=== PATIENT | male | born 1960 | race Caucasian/White ===

== ENCOUNTER 2019-02-10 13:14 | Emergency (ER) | payer OTHER, SELFPAY ==
[2019-02-10 13:15] VITALS: BP 120/68; PULSE 76; RESP 16; TEMP 36.4; O2SAT 96; BMI 24.7
--- NOTE | 2019-02-10 13:27 | CT_ITS ---
STUDY: CT ABDOMEN AND PELVIS WITH CONTRAST REASON FOR EXAM: Male, 58 years old. One-week history of right lower abdominal pain. Elevated white cell count and nausea. RADIATION DOSAGE (If Supplied By Facility): CTDIvol = ( 14.95 ) mGy, DLP = ( 494.00 ) mGycm TECHNIQUE: Transaxial images were obtained from the dome of the diaphragm to the symphysis pubis with oral contrast. 100mL IV/Oral Isovue 300 was administered. Sagittal and coronal images were reconstructed. Individualized dose optimization techniques were used for this CT. COMPARISON: None. FINDINGS: Minimal degree of increased markings at the lung bases suggestive of bibasilar atelectasis. The visualized portions of the heart are within normal limits. Normal liver. There are surgical clips in the gallbladder fossa consistent with a prior cholecystectomy. Normal spleen. Normal pancreas. Normal bilateral adrenal glands. Normal right kidney. Normal left kidney. Normal visualized stomach. I suspect a diverticulum of the second portion of the duodenum. There are multiple colonic diverticula consistent with diverticulosis. The appendix is visualized and appears normal. There is scattered atherosclerotic calcification of the abdominal aorta, without a demonstrated aneurysm. Normal inferior vena cava. Normal retroperitoneum. Normal urinary bladder. There are prostatic calcifications. The prostate measures 3.3 cm x 4.1 cm. This causes indentation at the bladder base. Small bilateral inguinal hernias containing fat. There are mild degenerative changes of the visualized lumbar spine. CT/Abdomen/Pelvis WITH Contrast IMPRESSION: Scattered sigmoid diverticula. The patient is status post cholecystectomy. Electronically Signed: Arnaud Geiger, at 15:57 EDT , Service support ,
[2019-02-10 14:42] VITALS: BP 138/93; PULSE 67; RESP 15; O2SAT 100
[2019-02-10 14:53] LABS: Absolute Lymphocyte Count 3.35 X10^3/uL (0.83-4.51); Absolute Neutrophil Count 10.5 X10^3/uL (2.0-7.7); Basophil% 0.6 % (0-1); Eosinophils% 1.3 % (0-5); Hematocrit 48.8 % (40-54); Hemoglobin 16.5 g/dL (13.0-16.5); Lymphocyte # 3.35 X10^3/ul (4.0); Lymphocyte % 21.7 % (19-41); Mean Corp Hgb Conc 33.8 g/dL (32-36); Mean Corpuscular Hgb 30.5 pg (27.0-32.0); Mean Corpuscular Volume 90.2 fL (80-94); Mean Platelet Vol. 11.4 fl (6.2-12.0); Monocyte% 7.8 % (0-10); NRBC Flagged by Analyzer 0 % (0-5); Neutrophil # 10.54 X10^3/uL (2.7-7.7); Neutrophil % 68.2 % (47-70); Platelet Count 260 K/mm3 (150-450); RBC Distribution Width CV 14.8 % (11.6-14.6); RBC Distribution Width SD 48.6 fl (35.1-43.9); Red Blood Count 5.41 M/mm3 (4.6-6.2); White Blood Count 15.5 K/mm3 (4.4-11.0)
--- NOTE | 2019-02-10 15:31 | ED.VIS.GEN ---
History of Present Illness Chief Complaint: Abd Pain Narrative: 58-year-old male presents with right lower quadrant abdominal pain for the past week. It started gradually and began to improve but has now returned to the he describes it as an intermittent sharp pain, only in the right lower quadrant. His bowel movements have been normal and he has had a normal appetite. No vomiting or fever. No back pain. He initially thought it was a pulled muscle but when it did not go away he went to see his primary care physician yesterday. He had outpatient laboratory studies that revealed a white blood cell count of 20,000 so he was sent to the emergency department for a CT scan to rule out acute appendicitis. Past Medical History - Allergies and Home Meds Allergies/Adverse Reactions: Allergies No Known Allergies Allergy (Verified 02/10/19 13:15) Primary Care Physician: Santiago Husain NP-C [Primary Care Provider] - Prior records reviewed: Yes Surgical History: noncontributory Smoking Status: Current every day smoker Review of Systems General: Denies: Chills, Fever, Sweats Eyes: Denies: Visual changes - bilaterally, Diplopia ENT: Denies: Rhinorrhea, Sore throat Cardiovascular: Denies: Chest pain, Palpitations Respiratory: Denies: Dyspnea, Cough, Dyspnea on exertion Gastrointestinal: Reports: Abdominal pain. Denies: Nausea, Vomiting, Diarrhea, Melena, Hematochezia Genitourinary: Denies: Dysuria, Hematuria, Frequency Musculoskeletal: Denies: Back pain, Extremity Pain Skin: Denies: Rash, Wounds Neurological: Denies: Headache, Weakness, Numbness Physical Exam Vital Signs/Narrative: Vital Signs Temp Pulse Resp BP Pulse Ox 02/10/19 14:42 67 15 138/93 H 100 02/10/19 13:15 97.5 F L 76 16 120/68 96 General: Well nourished, Well developed, No Acute Distress Head: Normocephalic, Atraumatic Eyes: Perrl, EOMI ENT: Moist mucous membranes, No rhinorrhea Neck: Supple, Nontender Cardiovascular: Regular rate, Regular rhythm, No murmurs Respiratory: No distress, CTA bilaterally, Chest nontender Abdomen: Soft, Nondistended, Normal bowel sounds, Tender - RLQ Back: Nontender, Normal Inspection Extremities: Nontender, No edema Skin: Normal color, No rash Neurological: Alert, Oriented x3, Cranial nerves II-XII grossly intact, Normal Strength, Normal Sensation Psychological: Normal affect, Normal Mood Diagnostic/Tx/Re-eval - Medical Decision Making He does still have a leukocytosis of 15,500. It was 20,000 yesterday. His urine does not look infected. I sent it for culture. His CT abdomen/pelvis is negative for acute process. The appendix is visualized and appears normal. On reexamination, his abdomen is soft and nontender. His pain is extremely minimal. He has no testicular pain or rash. No urinary symptoms. No skin wounds. I talked at length with him. The exact cause of his abdominal pain is not clear but it certainly could be musculoskeletal as he suspects. He will follow-up closely with his doctor to have his leukocytosis rechecked to make sure that is normalizing. I asked him to have this done in the next 2 days. He will return to the emergency department if worse. ED Disposition - Plan for ED Patient: Disposition: Home or Assisted Living Diagnosis: Right lower quadrant abdominal pain, Leukocytosis Instructions: ABDOMINAL PAIN, Unkown Cause, (Male) Referrals: Santiago Husain NP-C [Primary Care Provider] - 1 Day for another exam Additional Instructions: Make sure you get your blood work repeated within 48 hours
[2019-02-10 15:33] LABS: Anion Gap 6 (5-15); BUN 16 mg/dL (7-18); BUN/Creat Ratio 14.5 RATIO (10-20); Calcium,Total 8.5 mg/dL (8.5-10.1); Chloride 108 mmol/L (98-107); EST Glomerular Filtration Rate 73 mL/min (>60); Est Glom Filt Rate - Afr Amer 89 mL/min (>60); Estimated Creatinine Clearance 74.09 ml/min; Glucose 82 mg/dL (74-106); Potassium 4.8 mmol/L (3.5-5.1); Sodium Level 140 mmol/L (136-145)
[2019-02-10 15:48] LABS: Bacteria 0 SEEN /hpf (None Seen); Mucous, Urine 0 SEEN /hpf (<or=2+); Red Blood Cells-Urine 0 SEEN /hpf (0-5); White Blood Cells 0 SEEN /hpf (0-5)
[2019-02-10 15:55] LABS: Color, Urine Yellow (Yellow); Glucose, Dipstick Normal (Normal); Ketone-Dipstick Negative (Negative); Leukocyte Esterase-Dipstick Negative /ul (Negative); Nitrite-Dipstick Negative (Negative); Occult Blood-Urine Negative /ul (Negative); Protein-Dipstick Negative (Negative); Urine Bilirubin Dipstick Negative (Negative); Urine Clarity Clear (Clear); Urine Urobilinogen Normal (Normal); Urine pH 6.5 (5.0 - 8.0)
[2019-02-10 16:26] LABS: Squamous Epithelial Cells - UA 0-5 SEEN /hpf (0-5)
[2019-02-10 16:35] VITALS: BP 131/64; PULSE 78; RESP 16; TEMP 36.6; O2SAT 99
== END 2019-02-10 16:37 | disposition home or self-care (01) ==
PROVIDERS: Emergency Provider Emergency Medicine; Family Provider Nurse Practitioner Family; PCP Nurse Practitioner Family
DX: R10.31 Right lower quadrant pain (principal); D72.829 Elevated white blood cell count, unspecified; K57.30 Diverticulosis of large intestine without perforation or abscess without bleeding; F17.200 Nicotine dependence, unspecified, uncomplicated; Z90.49 Acquired absence of other specified parts of digestive tract
CPT/HCPCS: 74177; 80048; 81001; 85025; 99283; Q9967; A4216

== ENCOUNTER 2020-02-05 19:54 | Emergency (ER) | payer OTHER, SELFPAY ==
[2020-02-05 19:56] VITALS: BP 145/95; PULSE 81; RESP 16; TEMP 37.1; O2SAT 96; BMI 25.8
--- NOTE | 2020-02-05 21:45 | RAD_ITS ---
STUDY: X-RAY CHEST REASON FOR EXAM: Male, 59 years old. LEFT SIDED CHEST/ RIB PAIN -- HX OF RIB FXS 3 YRS AGO, SAME AREA -- NO RECENT INJURY TECHNIQUE: Frontal view COMPARISON: None. FINDINGS: The lungs are expanded. Mild left basilar atelectasis. Normal size heart. Normal mediastinum and tres. Normal visualized pulmonary arteries. Normal visualized aortic arch and descending thoracic aorta. Normal visualized thoracic spine. Normal visualized ribs, clavicles, and shoulders. There is no demonstrated abnormality of the visualized soft tissue structures of the upper abdomen. RAD/Chest 1 View (Portable) IMPRESSION: Mild left basilar atelectasis. Electronically Signed: Yfn Ortega DO at 22:18 EDT Tel [phone], Service support ,
[2020-02-05 21:56] LABS: Absolute Neutrophil Count 10.4 X10^3/uL (2.0-7.7); Basophil% 0.6 % (0-1); Eosinophil# 0.19 X10^3/uL; Eosinophils% 1.2 % (0-5); Hematocrit 42.8 % (40-54); Hemoglobin 14.2 g/dL (13.0-16.5); Lymphocyte % 21.4 % (19-41); Mean Corp Hgb Conc 33.2 g/dL (32-36); Mean Corpuscular Hgb 29.4 pg (27.0-32.0); Mean Corpuscular Volume 88.6 fL (80-94); Mean Platelet Vol. 10.6 fl (6.2-12.0); Monocyte# 1.75 X10^3/uL; NRBC Flagged by Analyzer 0 % (0-5); Neutrophil # 10.36 X10^3/uL (2.7-7.7); Neutrophil % 65.4 % (47-70); POSITIVE DIFFERENTIAL YES; Platelet Count 302 K/mm3 (150-450); RBC Distribution Width CV 13.7 % (11.6-14.6); RBC Distribution Width SD 44.6 fl (35.1-43.9); Red Blood Count 4.83 M/mm3 (4.6-6.2); White Blood Count 15.9 K/mm3 (4.4-11.0)
[2020-02-05 21:59] LABS: Differential Indicated SCAN CRITERIA MET
[2020-02-05 22:06] LABS: Anion Gap 6 (5-15); BUN 16 mg/dL (7-18); BUN/Creat Ratio 14.4 RATIO (10-20); Calcium,Total 8.6 mg/dL (8.5-10.1); Chloride 107 mmol/L (98-107); Creatinine, Serum 1.11 mg/dL (0.70-1.30); EST Glomerular Filtration Rate 72 mL/min (>60); Est Glom Filt Rate - Afr Amer 87 mL/min (>60); Estimated Creatinine Clearance 72.54 ml/min; Glucose 90 mg/dL (74-106); Potassium 4.1 mmol/L (3.5-5.1); Sodium Level 139 mmol/L (136-145)
[2020-02-05 22:10] LABS: D-Dimer Quantitative (DVT/PE) 0.42 FEU/ug/m (0.27-0.49)
[2020-02-05 22:11] VITALS: BP 123/88; PULSE 72; RESP 16; O2SAT 98
[2020-02-05] MEDS: 0.9% Normal Saline 1,000 ML 1000 ML IV (22:13)
--- NOTE | 2020-02-05 22:37 | ED.DCSUM_ITS ---
- ER Visit Summary Date of Service: 02/05/20 Chief Complaint: Left chest pain History of Present Illness: The patient is a 59 M who presents with left-sided chest pain that is been getting worse over the past 2 to 3 days. Patient describes the pain as sharp and stabbing. Patient states the pain is over the left lower chest. Patient states it is worse with exertion and deep breathing. Patient denies any cough. Patient states he has trouble taking a deep breath due to the pain. Patient denies any cough or fever. Patient denies any nausea or vomiting. Patient denies any diaphoresis. Patient denies any recent travel or recent surgery. Patient denies any history of blood clots or cancer. Lida gupta is a smoker. Patient denies any other cardiac or PE risk factors. Physical Examination: Vital signs are stable. Patient is afebrile. Patient is in no acute distress. Oral mucosa is pink and moist. Neck is supple. Trachea is midline. There is no JVD. Heart was regular rate and rhythm. Lungs are diminished in the left base. There is adequate respiratory effort. It was limited secondary to pain. There is tenderness over the left lower ribs. There is no bony crepitance or step-off. There is no edema or ecchymosis. Abdomen is soft. Bowel sounds are normal. There is no tenderness. Cranial nerves II through XII are intact. There are no focal motor or sensory deficits. Test Results: Portable chest x-ray was obtained. There is left basilar atelectasis. This was interpreted by the radiologist and reviewed by myself. CBC showed a leukocytosis of 15.9. Basic metabolic profile was within normal limits. D-dimer was normal. Emergency Department Course and Treatment: Patient was given IV fluids. Patient was given a dose of Toradol here. Patient was instructed to follow-up with his primary care physician in 5 to 7 days. Patient was instructed to take 10-15 deep breaths every hour while awake to prevent atelectasis and pneumonia. Patient was instructed to return if worse in any way. Patient understood and was agreeable with the plan. All questions were answered. Disposition: Discharge home Impression: Chest pain This note was generated with [employer] dictation software. It may contain incorrect words, spelling, and punctuation that were not noted in review of the chart prior to signing ED Disposition - Plan for ED Patient: Disposition: Home or Assisted Living Diagnosis: Left-sided chest pain Instructions: ED Chest Pain NonCardiac Referrals: West Bae MD [Primary Care Provider] - 5-7 Days
[2020-02-05] MEDS: Ketorolac 30 MG/ML Syringe IV (22:51)
[2020-02-05 22:52] VITALS: BP 136/97; PULSE 72; RESP 15; O2SAT 95
[2020-02-05 23:22] LABS: Differential Comment SCANNED
[2020-02-05 23:23] LABS: Platelet Estimate ADEQUATE (ADEQ); Red Cell Morphology NORM C+C NORMAL (NORM C&C)
[2020-02-07 12:56] LABS: Pathologist Review Reviewed
== END 2020-02-05 23:00 | disposition home or self-care (01) ==
PROVIDERS: Emergency Provider Emergency Medicine; PCP Family Medicine
DX: R07.9 Chest pain, unspecified (principal); F17.200 Nicotine dependence, unspecified, uncomplicated; E05.90 Thyrotoxicosis, unspecified without thyrotoxic crisis or storm
CPT/HCPCS: 71045; 80048; 85025; 85379; 96361; 96374; 99283; J7030; A4216

== ENCOUNTER 2020-04-23 14:20 | Emergency (ER) | payer OTHER, SELFPAY ==
[2020-04-23 14:22] VITALS: BP 132/77; PULSE 78; RESP 16; TEMP 36.3; O2SAT 97; BMI 24.3
--- NOTE | 2020-04-23 14:46 | EKG12_ITS ---
Test Reason : CP Blood Pressure : / mmHG Vent. Rate : 082 BPM Atrial Rate : 082 BPM P-R Int : 142 ms QRS Dur : 098 ms QT Int : 366 ms P-R-T Axes : 083 079 071 degrees QTc Int : 427 ms Normal sinus rhythm with sinus arrhythmia Incomplete right bundle branch block Borderline ECG Confirmed by SAMMY DOMÍNGUEZ, CHILO ([id number]), newspaper photo editor RELL GARCIA ([id number]) on 04/25/2020 12:51:53 PM Referred By: Confirmed By:CHILO CHRISTIANSON MD
--- NOTE | 2020-04-23 14:47 | ED.VIS.GEN ---
History of Present Illness Chief Complaint: Chest Pain Informant: Patient Onset: Weeks - 1 week Context: Gradual Onset Timing: Waxes and wanes Current Severity: Mild Maximum Severity: Mild Narrative: Patient presents with a one-week history of chest pain accompanied by shortness of breath and cough. He is bringing up white sputum. He does feel like he is wheezing. He has not noted fever or chills. He has been going to work in a factory. He has no known contact with anyone with Covid. He does report a longstanding history of smoking but denies known history of COPD. - Past Medical History (1) Hypothyroid Status: Chronic Past Medical History - Allergies and Home Meds Allergies/Adverse Reactions: Allergies No Known Allergies Allergy (Verified 04/23/20 14:22) Primary Care Physician: West Bae MD [Primary Care Provider] - 3-5 Days if not improving Surgical History: noncontributory Lives: Spouse/ Significant Other Smoking Status: Current every day smoker Review of Systems General: Denies: Chills, Fever Eyes: Denies: Visual changes - bilaterally ENT: Denies: Bilateral ear pain Cardiovascular: Reports: Chest pain. Denies: Palpitations, Heart racing Respiratory: Reports: Dyspnea, Cough, Sputum Gastrointestinal: Denies: Abdominal pain, Nausea, Vomiting, Diarrhea Genitourinary: Denies: Dysuria Musculoskeletal: Denies: Swelling, Extremity Pain Skin: Denies: Rash Neurological: Denies: Headache Hematologic: Denies: Easy bruising, Easy bleeding Allergy: Denies: Uticaria Physical Exam Vital Signs/Narrative: Vital Signs Temp Pulse Resp BP Pulse Ox 04/23/20 14:22 97.4 F L 78 16 132/77 H 97 Inital Vital Signs reviewed: Yes General: Well nourished, Well developed Head: Normocephalic Eyes: Perrl ENT: Moist mucous membranes, No rhinorrhea Neck: Supple Cardiovascular: Regular rate, Regular rhythm Respiratory: No distress, CTA bilaterally, Chest tenderness - Mild chest wall tenderness. Abdomen: Soft, Nontender Extremities: Nontender Skin: Normal color Neurological: Alert, Oriented x3, Normal Strength, Normal Sensation Psychological: Normal affect Diagnostic/Tx/Re-eval Chest X-Ray - ED: 1 View, Read by ED Physician, Chronic Changes, No Infiltrates - EKG Initial EKG Interpretation: Sinus Rhythm - Sinus at 82 with no acute ischemia. - Medical Decision Making Patient was given aspirin on arrival. Patient has had URI symptoms with cough and shortness of breath for the last week. He does note wheezing at night. My suspicion is he has some degree of underlying COPD secondary to his long smoking history. He will be treated with doxycycline, steroids, albuterol inhaler. Covid test was sent as a send out test. Addendum: I was contacted by radiology to ensure that I had seen the final report on chest x-ray. They believe there is evidence of a new mass or adenopathy in the left mediastinum or superior hilum. CT of the chest is recommended. I called the patient and spoke with him on the telephone. I advised him of these findings and need for outpatient CT of the chest when he gets his follow-up appointment with his doctor. He voices understanding and agreement and will follow-up. ED Disposition - Plan for ED Patient: Disposition: Home or Assisted Living Diagnosis: Bronchitis Instructions: Acute Bronchitis Prescriptions: Prednisone [Deltasone] 40 mg PO DAILY #10 tab Transmission Status: Received by [facility]/pharmacy #[id number] Doxycycline 100 mg PO BID #20 cap Transmission Status: Received by [facility]/pharmacy #[id number] Albuterol Inhaler [Ventolin Hfa] 1 - 2 puff INHALATION Q4H PRN PRN #1 inhaler PRN Reason: Wheezing Transmission Status: Received by [facility]/pharmacy #[id number] Referrals: West Bae MD [Primary Care Provider] - 3-5 Days if not improving
[2020-04-23 15:12] VITALS: O2SAT 96
[2020-04-23] MEDS: Aspirin 81 MG TAB.CHEW 324 MG PO (15:13)
--- NOTE | 2020-04-23 15:36 | RAD_ITS ---
ACR Level 3 findings have been noted. An addendum which confirms receipt of the report will follow. STUDY: X-RAY CHEST REASON FOR EXAM: Male, 59 years old. CHEST PAIN TECHNIQUE: Single AP portable view of the chest. COMPARISON: 02/05/2020. FINDINGS: The lungs are clear and expanded. There is no demonstrated pleural abnormality. New left superior hilar density adjacent to the aortic arch. Question mass or adenopathy. Normal size heart. Normal visualized pulmonary arteries. Normal visualized aortic arch and descending thoracic aorta. Normal visualized thoracic spine. Normal visualized ribs, clavicles, and shoulders. There is no demonstrated abnormality of the visualized soft tissue structures of the upper abdomen. RAD/Chest 1 View (Portable) IMPRESSION: New mass or adenopathy in the left mediastinum or superior hilum. CT the chest is recommended for further evaluation. Electronically Signed: Colleen Clement MD at 16:49 EDT Tel , Service support ,
[2020-04-23 15:37] LABS: Absolute Lymphocyte Count 2.68 X10^3/uL (0.83-4.51); Absolute Neutrophil Count 8.3 X10^3/uL (2.0-7.7); Basophil# 0.08 X10^3/uL; Basophil% 0.6 % (0-1); Eosinophil# 0.18 X10^3/uL; Eosinophils% 1.5 % (0-5); Hematocrit 45.9 % (40-54); Hemoglobin 14.9 g/dL (13.0-16.5); Lymphocyte # 2.68 X10^3/ul (4.0); Lymphocyte % 21.6 % (19-41); Mean Corp Hgb Conc 32.5 g/dL (32-36); Mean Corpuscular Hgb 28.7 pg (27.0-32.0); Mean Corpuscular Volume 88.4 fL (80-94); Mean Platelet Vol. 10.4 fl (6.2-12.0); Monocyte# 1.13 X10^3/uL; Monocyte% 9.1 % (0-10); NRBC Flagged by Analyzer 0 % (0-5); Neutrophil # 8.27 X10^3/uL (2.7-7.7); Neutrophil % 66.7 % (47-70); Platelet Count 320 K/mm3 (150-450); RBC Distribution Width CV 13.6 % (11.6-14.6); RBC Distribution Width SD 44.3 fl (35.1-43.9); Red Blood Count 5.19 M/mm3 (4.6-6.2); White Blood Count 12.4 K/mm3 (4.4-11.0)
[2020-04-23 15:50] LABS: D-Dimer Quantitative (DVT/PE) 0.49 FEU/ug/m (0.27-0.49)
[2020-04-23 15:58] LABS: Anion Gap 4 (5-15); BUN 15 mg/dL (7-18); BUN/Creat Ratio 15.1 RATIO (10-20); Calcium,Total 9.2 mg/dL (8.5-10.1); Chloride 106 mmol/L (98-107); Creatinine, Serum 0.99 mg/dL (0.70-1.30); EST Glomerular Filtration Rate 82 mL/min (>60); Est Glom Filt Rate - Afr Amer 99 mL/min (>60); Estimated Creatinine Clearance 81.33 ml/min; Glucose 113 mg/dL (74-106); Sodium Level 137 mmol/L (136-145)
[2020-04-23 16:33] VITALS: BP 126/84; PULSE 62; RESP 14; O2SAT 97
[2020-04-23] MEDS: predniSONE 20 MG Tablet 40 MG PO (16:42)
[2020-04-23] MEDS: Doxycycline 100 MG CAPSULE PO (16:43)
== END 2020-04-23 16:44 | disposition home or self-care (01) ==
PROVIDERS: Emergency Provider Emergency Medicine; PCP Family Medicine
DX: J40 Bronchitis, not specified as acute or chronic (principal); R91.8 Other nonspecific abnormal finding of lung field; E03.9 Hypothyroidism, unspecified; F17.200 Nicotine dependence, unspecified, uncomplicated
CPT/HCPCS: 71045; 80048; 84484; 85025; 85379; 87635; 93005; 99285; A4216; U0003

== ENCOUNTER 2020-04-26 14:47 | Observation (INO) ==
[2020-04-26] VITALS (7 sets, daily range): BP systolic 112–133; BP diastolic 67–96; PULSE 73–79; RESP 14–18; TEMP 36.5–37; O2SAT 94–98; BMI 24.6; BMI 24.3
--- NOTE | 2020-04-26 14:53 | ED.RN ---
per pt having throat sternal congestion for a week and a half. no change post treatment. feeling like nodules increasing in throat and voice changed.
--- NOTE | 2020-04-26 15:04 | EKG12_ITS ---
Test Reason : COUGH Blood Pressure : / mmHG Vent. Rate : 074 BPM Atrial Rate : 074 BPM P-R Int : 142 ms QRS Dur : 100 ms QT Int : 382 ms P-R-T Axes : 053 051 048 degrees QTc Int : 424 ms Normal sinus rhythm with sinus arrhythmia Normal ECG Confirmed by MINERVA DOMÍNGUEZ, ERICKSON ([id number]), magazine editor VON MARTIN ([id number]) on 05/01/2020 8:24:26 A M Referred By: ESVIN Confirmed By:DONTE PALMA MD
--- NOTE | 2020-04-26 15:05 | ED.DCSUM_ITS ---
History of Present Illness Chief Complaint: Cough Detail of Chief Complaint: Hemoptysis Informant: Patient Onset: Today Current Severity: Moderate Maximum Severity: Moderate Narrative: Patient presents secondary to hemoptysis. Patient has had chest heaviness with cough and shortness of breath for the past 8 days. He was seen here by myself on the . Covid test was negative. Work-up was grossly unremarkable and patient was discharged home with steroids, albuterol, and antibiotics. I received a phone call from radiology after the patient had been discharged they were suspicious that there might be a hilar mass. Patient had a CT scan done yesterday at [facility] that revealed a bulky left hilar mass with left hilar and mediastinal lymphadenopathy. Numerous nodules in the left lower lobe were noted. Patient states his doctor told him that there was a mass and he needed to contact oncology for an appointment. Today shortly before arrival patient started having cough with bloody sputum. Patient states the initial several coughing episodes he brought up straight blood. The last couple episodes were sputum with blood. Sitting at rest he denies shortness of breath but with any exertion he becomes quite winded. - Past Medical History (1) Hypothyroid Status: Chronic Past Medical History - Allergies and Home Meds Allergies/Adverse Reactions: Allergies No Known Allergies Allergy (Verified 04/26/20 14:52) Primary Care Physician: West Bae MD [Primary Care Provider] - Surgical History: noncontributory Lives: Spouse/ Significant Other Smoking Status: Current every day smoker Review of Systems General: Denies: Chills, Fever Eyes: Denies: Visual changes - bilaterally ENT: Denies: Bilateral ear pain Cardiovascular: Reports: Chest pain Respiratory: Reports: Dyspnea, Cough, Sputum Gastrointestinal: Denies: Abdominal pain, Nausea, Vomiting, Diarrhea Musculoskeletal: Denies: Extremity Pain Skin: Denies: Rash Neurological: Denies: Headache Hematologic: Denies: Easy bruising, Easy bleeding Allergy: Denies: Uticaria Physical Exam Vital Signs/Narrative: Vital Signs Temp Pulse Resp BP Pulse Ox 04/26/20 14:49 97.3 F L 83 18 135/87 H 99 Inital Vital Signs reviewed: Yes General: Well nourished, Well developed Head: Normocephalic ENT: Moist mucous membranes Neck: Supple Cardiovascular: Regular rate, Regular rhythm Respiratory: No distress, CTA bilaterally Abdomen: Soft, Nontender, Normal bowel sounds Extremities: Nontender Skin: Normal color Neurological: Alert, Oriented x3, Normal Strength, Normal Sensation Psychological: Normal affect Diagnostic/Tx/Re-eval Impressions Chest X-Ray 04/26/20 15:55 IMPRESSION: No acute cardiopulmonary changes. Negative for new consolidation, volume loss or pleural effusion. Findings consistent with mass density in the superior left hilum/aortopulmonary window. Electronically Signed: Cecile Quarles MD at 16:21 EDT , Service support , 04/26/20 15:55 Chest 1 View (Portable) [RAD] Stat Laboratory Results 04/26/20 04/26/20 04/26/20 15:30 15:30 15:30 WBC 17.3 H RBC 5.01 Hgb 14.5 Hct 44.1 MCV 88.0 MCH 28.9 MCHC 32.9 RDW Std Deviation 44.8 H RDW Coeff of Liliana 14.0 Plt Count 327 MPV 10.4 Immature Gran % (Auto) 0.800 Neut % (Auto) 76.8 H Lymph % (Auto) 14.6 L Harding % (Auto) 6.8 Eos % (Auto) 0.3 Baso % (Auto) 0.7 Absolute Neuts (auto) 13.3 H Absolute Lymphs (auto) 2.53 Nucleated RBC % 0 PT 12.5 INR 1.0 APTT 28.6 Sodium 140 Potassium 4.6 Chloride 108 H Carbon Dioxide 25.0 Anion Gap 7 BUN 16 Creatinine 1.09 Estim Creat Clear Calc 73.87 Est GFR (MDRD) Af Amer 89 Est GFR (MDRD) Non-Af 74 BUN/Creatinine Ratio 14.7 Glucose 91 Calcium 9.4 - EKG Initial EKG Interpretation: Sinus Rhythm - Sinus at 74 with no acute ischemia. - Medical Decision Making Patient is observed on shelter monitor throughout his ED stay. Vital signs have been stable. I did speak with Dr. Ramriez, on-call for pulmonology. He agreed with admitting the patient overnight for observation. He will see the patient in consult tomorrow. He did request a disc of the patient's CT scan be obtained by the family so he can review it tomorrow to help give prognostic information. This was discussed with and she agreed to get the images for us. I will speak with hospitalist regarding admission. ED Disposition - Plan for ED Patient: Disposition: Acute Care [facility] Diagnosis: Hemoptysis Referrals: West Bae MD [Primary Care Provider] -
[2020-04-26 15:37] LABS: Absolute Lymphocyte Count 2.53 X10^3/uL (0.83-4.51); Absolute Neutrophil Count 13.3 X10^3/uL (2.0-7.7); Basophil# 0.12 X10^3/uL; Basophil% 0.7 % (0-1); Eosinophil# 0.06 X10^3/uL; Eosinophils% 0.3 % (0-5); Hematocrit 44.1 % (40-54); Hemoglobin 14.5 g/dL (13.0-16.5); Lymphocyte # 2.53 X10^3/ul (4.0); Lymphocyte % 14.6 % (19-41); Mean Corp Hgb Conc 32.9 g/dL (32-36); Mean Corpuscular Hgb 28.9 pg (27.0-32.0); Mean Platelet Vol. 10.4 fl (6.2-12.0); Monocyte# 1.18 X10^3/uL; Monocyte% 6.8 % (0-10); NRBC Flagged by Analyzer 0 % (0-5); Neutrophil # 13.27 X10^3/uL (2.7-7.7); Neutrophil % 76.8 % (47-70); Platelet Count 327 K/mm3 (150-450); RBC Distribution Width SD 44.8 fl (35.1-43.9); Red Blood Count 5.01 M/mm3 (4.6-6.2); White Blood Count 17.3 K/mm3 (4.4-11.0)
[2020-04-26] MEDS: Benzonatate 100 MG Capsule 200 MG PO (15:44)
[2020-04-26] MEDS: 0.9% Normal Saline 1,000 ML 150 ML IV (15:44)
[2020-04-26 15:53] LABS: Partial Thromboplast Time 28.6 Seconds (24.1-36.2); Prothrombin Time (Protime)PT. 12.5 SECONDS (11.7-14.9)
[2020-04-26 15:54] LABS: Anion Gap 7 (5-15); BUN 16 mg/dL (7-18); BUN/Creat Ratio 14.7 RATIO (10-20); Calcium,Total 9.4 mg/dL (8.5-10.1); Chloride 108 mmol/L (98-107); Creatinine, Serum 1.09 mg/dL (0.70-1.30); EST Glomerular Filtration Rate 74 mL/min (>60); Est Glom Filt Rate - Afr Amer 89 mL/min (>60); Estimated Creatinine Clearance 73.87 ml/min; Glucose 91 mg/dL (74-106); Potassium 4.6 mmol/L (3.5-5.1); Sodium Level 140 mmol/L (136-145)
--- NOTE | 2020-04-26 15:55 | RAD_ITS ---
STUDY: X-RAY CHEST REASON FOR EXAM: Male, 59 years old. pt recently was seen for cough with diagnosis of COPD/bronchitis and lung mass. today started coughing up blood. feeling congestion on left sided chest to neck. TECHNIQUE: 1 view COMPARISON: Prior chest radiograph of 04/23/2020 FINDINGS: Lung hayden remain expanded without new consolidation or focal atelectasis. Minimal transverse linear opacity at the left lung base above the costophrenic angle unchanged from prior exam. Normal size heart. Mass density in the left hilum/aortopulmonary window unchanged from prior exam of 04/23/2020. This finding is a new finding since 02/05/2020. Normal visualized pulmonary arteries. Normal visualized aortic arch and descending thoracic aorta. Normal visualized thoracic spine. Normal visualized ribs, clavicles, and shoulders. There is no demonstrated abnormality of the visualized soft tissue structures of the upper abdomen. RAD/Chest 1 View (Portable) IMPRESSION: No acute cardiopulmonary changes. Negative for new consolidation, volume loss or pleural effusion. Findings consistent with mass density in the superior left hilum/aortopulmonary window. Electronically Signed: Cecile Quarles MD at 16:21 EDT , Service support ,
--- NOTE | 2020-04-26 16:49 | NURSING ---
MED SURG ASHELFA[facility] OBS HEMOPTYSIS
--- NOTE | 2020-04-26 17:14 | PCM.HP.STD ---
<Danica Ellis SHAREPOINT SPECIALIST - Last Filed: 04/26/20 17:22> Problem List (1) Hemoptysis Status: Acute (2) Hypothyroid Status: Chronic History of Present Illness Date of Admission: 04/26/20 Chief Complaint: Coughing up blood. The patient is a 59 year old M who presents the emergency room due to coughing up blood. Patient states he has had shortness of breath and cough for the past 3 weeks. He was evaluated at the emergency room on Friday where he was treated with doxycycline and prednisone. He states he was told he has COPD based on imaging. Today he reports several episodes of hemoptysis, initially with significant amount of blood and later blood-tinged sputum. He states shortness of breath and cough has improved over the past few days. He denies fever, chills. Patient was notified his imaging demonstrated a lung mass and he is in the process of being referred to oncology however he is awaiting Covid test prior to visit. He has an extensive smoking history. His other past medical history includes hypothyroidism. Past Medical History Past Medical History (Chronic Problems): Chronic Problems Hypothyroid (Chronic) Allergies No Known Allergies Allergy (Verified 04/26/20 14:52) Home Medications: Ambulatory Orders Medication Instructions Recorded Albuterol Inhaler [Ventolin Hfa] 1 - 2 puff INHALATION Q4H PRN PRN 04/23/20 #1 inhaler Doxycycline 100 mg PO BID #20 cap 04/23/20 Prednisone [Deltasone] 40 mg PO DAILY #10 tab 04/23/20 Levothyroxine Sodium 112 mcg PO DAILY 04/26/20 Naproxen Sodium [Aleve] 220 mg PO DAILY PRN PRN 04/26/20 Surgical History: - - Right fifth finger surgery, right eye surgery. Bilateral knee scopes, cholecystectomy. Psychiatric History: No pertinent psych hx Lives: Spouse/ Significant Other Smoking Status: Current every day smoker Tobacco Use: Cigarettes Alcohol: None Drugs: None - *Family History Maternal History Items: - - Recently related to cancer Paternal History Items: - - Did not know my dad Review of Systems Constitutional: Denies: Chills, Fever, Weight Change HEENT: Denies: Head Aches, Sinus Congestion, Sinus Drainage Cardiovascular: Denies: Chest Pain, Palpitations Respiratory: Reports: Cough, Hemoptysis. Denies: Shortness of Breath Gastrointestinal: Denies: Abdominal Pain, Nausea, Vomiting Genitourinary: Denies: Dysuria Musculoskeletal: Denies: Joint Pain, Joint Tenderness Skin: Denies: Rash, Wounds Neurological: Denies: Numbness, Tingling, Focal weakness Psychiatric: Denies: Anxiety, Depression, Homicidal Ideations, Suicidal Ideations Hematologic/ Lymphatic: Denies: Easy Bruising, Easy Bleeding VTE Information - Inpt Only VTE Present on Admission: No VTE Mechan Device Prophylaxis: SCD's VTE Pharm Prophylaxis ordered?: No Reason prophylaxis not ordered:: Medical Contraindication Patient Problems: Active and Suspected Problems Hemoptysis (Acute) - Physical Exam Vitals/I&O's: Vital Signs Temp Pulse Resp BP Pulse Ox 97.7 F L 76 14 132/93 H 98 04/26/20 16:46 04/26/20 16:46 04/26/20 16:46 04/26/20 16:49 04/26/20 16:46 Oxygen Delivery Method Room Air Weight: 166 lb 12.8 oz Body Mass Index (BMI) 24.6 General: Alert, Oriented x3, Cooperative HEENT: Atraumatic, PERRLA, EOMI, Normocephalic Neck: Supple, No JVD, Negative Carotid Bruits Lungs: Clear to auscultation, Diminished Cardiovascular: Regular rate, No murmurs Abdomen: Bowel Sounds Present, Soft, Non Tender Extremities: No clubbing, No cyanosis, No edema, Capillary Refill Less than 3 Seconds Skin: No rashes, No breakdown Musculoskeletal: No Tenderness to Palpation of Joints or Extremities Neurological: Cranial nerves II-XII grossly intact, Neuro grossly intact Psych/Mental Status: Normal Affect, Appropriate Laboratory Results 04/26/20 15:30: WBC 17.3 H, RBC 5.01, Hgb 14.5, Hct 44.1, MCV 88.0, MCH 28.9, MCHC 32.9, RDW Std Deviation 44.8 H, RDW Coeff of Liliana 14.0, Plt Count 327, MPV 10.4, Immature Gran % (Auto) 0.800, Neut % (Auto) 76.8 H, Lymph % (Auto) 14.6 L, [place] % (Auto) 6.8, Eos % (Auto) 0.3, Baso % (Auto) 0.7, Absolute Neuts (auto) 13.3 H, Absolute Lymphs (auto) 2.53, Nucleated RBC % 0 04/26/20 15:30: PT 12.5, INR 1.0, APTT 28.6 04/26/20 15:30: Sodium 140, Potassium 4.6, Chloride 108 H, Carbon Dioxide 25.0, Anion Gap 7, BUN 16, Creatinine 1.09, Estim Creat Clear Calc 73.87, Est GFR (MDRD) Af Amer 89, Est GFR (MDRD) Non-Af 74, BUN/Creatinine Ratio 14.7, Glucose 91, Calcium 9.4 Current Medications Sodium Chloride () 1,000 mls @ 150 mls/hr IV .[id number] JAQUELINE Last Admin: 04/26/20 15:44 Dose: 150 mls/hr Documented by: Assessment/Plan All Active Problems Hemoptysis (Acute) 1. Hemoptysis in the setting of recent diagnosis lung mass-chest CT completed by [facility] yesterday, 04/25/2020 demonstrates bulky left hilar mass with left hilar and mediastinal lymphadenopathy. Numerous nodules in the left lower lobe and many of them are along the bronchovascular bundles. Highly suspicious for malignancy. Consult Dr. Ramirez who was notified by ER. Monitor CBC. 2. Hypothyroidism-continue Synthroid. 3. Tobacco dependence-states he smoked his last cigarette on the way in. Encourage cessation. Declines nicotine patch. DVT prophylaxis-pharmacologic prophylaxis contraindicated, low risk-early ambulation This patient was seen by AMANDA Ugalde under the supervision of Dr. Enamorado. <Carmen Enamorado E - Last Filed: 04/26/20 17:47> History of Present Illness The patient is a 59 year old M [] Past Medical History Allergies No Known Allergies Allergy (Verified 04/26/20 14:52) - Physical Exam Vitals/I&O's: Vital Signs Temp Pulse Resp BP Pulse Ox 98.4 F 73 16 133/96 H 98 04/26/20 17:33 04/26/20 17:33 04/26/20 17:33 04/26/20 17:33 04/26/20 17:33 Oxygen Delivery Method Room Air Weight: 165 lb Body Mass Index (BMI) 24.3 Laboratory Results 04/26/20 15:30: WBC 17.3 H, RBC 5.01, Hgb 14.5, Hct 44.1, MCV 88.0, MCH 28.9, MCHC 32.9, RDW Std Deviation 44.8 H, RDW Coeff of Liliana 14.0, Plt Count 327, MPV 10.4, Immature Gran % (Auto) 0.800, Neut % (Auto) 76.8 H, Lymph % (Auto) 14.6 L, [place] % (Auto) 6.8, Eos % (Auto) 0.3, Baso % (Auto) 0.7, Absolute Neuts (auto) 13.3 H, Absolute Lymphs (auto) 2.53, Nucleated RBC % 0 04/26/20 15:30: PT 12.5, INR 1.0, APTT 28.6 04/26/20 15:30: Sodium 140, Potassium 4.6, Chloride 108 H, Carbon Dioxide 25.0, Anion Gap 7, BUN 16, Creatinine 1.09, Estim Creat Clear Calc 73.87, Est GFR (MDRD) Af Amer 89, Est GFR (MDRD) Non-Af 74, BUN/Creatinine Ratio 14.7, Glucose 91, Calcium 9.4 Current Medications Acetaminophen (Acetaminophen 325 Mg Tablet) 650 mg PO Q6H PRN PRN PRN Reason: Pain Score 1-10/Temp > 100.7 F Albuterol Sulfate (Albuterol 2.5 Mg/3 Ml Vial.Neb.) 2.5 mg INHALATION Q4H PRN PRN PRN Reason: Shortness of breath, wheezing Levothyroxine Sodium (Levothyroxine 88 Mcg Tablet) 112 mcg PO DAILY JAQUELINE Ondansetron HCl (Ondansetron 4 Mg/2 Ml Vial) 4 mg IV Q8H PRN PRN PRN Reason: NAUSEA/VOMITING Senna/Docusate Sodium (Senna/Docusate Sodium 1 Tablet) 2 tablet PO BID PRN PRN PRN Reason: Constipation Sodium Chloride (0.9% Saline Lock 10 Ml Syringe) 10 - 40 ml IV UD PRN PRN Reason: SALINE FLUSH Zolpidem Tartrate (Zolpidem Tartrate 5 Mg Tablet) 5 mg PO QHS PRN PRN PRN Reason: INSOMNIA Assessment/Plan Hospitalist note: I am seeing this patient in conjunction with Danica Ellis. I independently seen and examined the patient. History and physical, laboratory data and imaging studies reviewed and I concur with the above admission plan. Patient presented to the emergency room because of coughing up blood, started this morning, initially was bright stacey red blood, 6-7 times this morning and afternoon, later started to have sputum mixed with blood and no other associated symptoms. Patient was started on doxycycline and prednisone for shortness of breath presumed acute bronchitis. He denies significant weight loss. He is a chronic smoker. He denies chest pain or shortness of breath. He denies fever or chills. He denied sick contacts or recent travel. Patient had CT scan chest that was done yesterday at [facility] and revealed bulky left hilar mass with left hilar mediastinal lymphadenopathy, numerous left lower lobe nodules. In the emergency department, his vital signs were stable. His routine blood work was remarkable for leukocytosis, otherwise normal. Pro time and INR were normal. Platelet count was normal. Is being admitted for hemoptysis likely due to malignancy for observation. - Physical Exam General: Alert, Oriented x3, Cooperative, No apparent distress. HEENT: Atraumatic, PERRLA, EOMI. Neck: Supple, No JVD, Negative Carotid Bruits, Trachea Midline, Thyroid Normal. Lungs: Clear to auscultation, Normal air movement, No rhonchi, No wheeze, No rales. Cardiovascular: Regular rate, Regular Rhythm, Normal S1, Normal S2, PMI Normal. Abdomen: Bowel Sounds Present, Soft, Non Tender, Non-Distended, No Hepato-splenomegaly. Extremities: No clubbing, No cyanosis, No edema Skin: No rashes, No breakdown Neurological: Neuro grossly intact Vital Signs are stable. Assessment and plan: #1 hemoptysis/left hilar mass: Likely due to malignancy. CT scan chest that was done yesterday reviewed. Currently, patient is stable, vital signs are stable. Hemoglobin and hematocrit are normal. Platelet count as well as pro time and INR are normal. Plan: Admit to [facility] floor for observation, telemetry, pulmonology consult, repeat CBC tomorrow morning, albuterol as needed. 2. Other chronic medical problems: Stable, continue current medications as above. This note was generated with AppNetaation software. It may contain incorrect words, spelling, and punctuation that were not noted in checking the note before signing. OBSV E&M: 88198 Initial observation care L2
[2020-04-27] VITALS (9 sets, daily range): BP systolic 128–143; BP diastolic 74–78; PULSE 67–129; RESP 16–18; TEMP 36.5–36.9; O2SAT 95–98
[2020-04-27] MEDS: Levothyroxine 112 MCG Tablet PO (06:05)
[2020-04-27 06:38] LABS: Absolute Lymphocyte Count 4.96 X10^3/uL (0.83-4.51); Absolute Neutrophil Count 11.5 X10^3/uL (2.0-7.7); Basophil# 0.07 X10^3/uL; Basophil% 0.4 % (0-1); Eosinophil# 0.11 X10^3/uL; Eosinophils% 0.6 % (0-5); Hematocrit 45.2 % (40-54); Hemoglobin 14.6 g/dL (13.0-16.5); Lymphocyte # 4.96 X10^3/ul (4.0); Lymphocyte % 26.8 % (19-41); Mean Corp Hgb Conc 32.3 g/dL (32-36); Mean Corpuscular Hgb 28.6 pg (27.0-32.0); Mean Corpuscular Volume 88.6 fL (80-94); Mean Platelet Vol. 10.4 fl (6.2-12.0); Monocyte# 1.75 X10^3/uL; Monocyte% 9.4 % (0-10); NRBC Flagged by Analyzer 0 % (0-5); Neutrophil # 11.52 X10^3/uL (2.7-7.7); Neutrophil % 62.1 % (47-70); POSITIVE DIFFERENTIAL YES; Platelet Count 349 K/mm3 (150-450); RBC Distribution Width CV 13.7 % (11.6-14.6); RBC Distribution Width SD 44.8 fl (35.1-43.9); White Blood Count 18.5 K/mm3 (4.4-11.0)
[2020-04-27 06:43] LABS: Differential Indicated SCAN CRITERIA MET
[2020-04-27 06:58] LABS: Differential Comment SCANNED
--- NOTE | 2020-04-27 10:38 | PCM.CONS.PUL ---
Problem List (1) Mediastinal mass Status: Acute (2) Hypothyroid Status: Chronic Qualifiers: Hypothyroidism type: due to acquired atrophy of thyroid Qualified Code(s): E03.4 - Atrophy of thyroid (acquired) (3) Hemoptysis Status: Acute Reason for Consult Date of Consultation: 04/27/20 Reason for Consultation: Hemoptysis History of Present Illness: The patient is a 59 year old M, with past medical history listed below, who presented to [facility] on 04/26/2020 secondary to a new onset of hemoptysis. Patient had reportedly been to the ER previously and diagnosed with a COPD exacerbation 8 days previously. Patient was placed on steroids, albuterol and antibiotics and discharged home. On the day of presentation, patient was called and stated there was some suspicion for hilar mass. Patient had a CT done at the [facility] showing a bulky left hilar mass. However, on the day of presentation, patient states he had a cough productive of approximately 100 cc of bright red blood. Patient states that he was scared and came to the ER for evaluation. Given continuing blood, patient was admitted for observation overnight. In the ER, patient was saturating well on room air. EKG showed no acute ischemia. Patient did have a leukocytosis of 17.3, but hemoglobin was normal at 14.5. Coagulation studies were unremarkable. Chemistries were okay. Patient was admitted to the floor for observation. Patient reports that he does have an extensive smoking history. Patient never had a previous CAT scan or chest x-ray that he is aware of. Patient states that he has had approximately 10 pound weight loss over the last month or so. Patient does have a cough at baseline productive of clear to white sputum, but thought this was secondary to his COPD. 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 Patient denies any family history of cancer. Patient has never had chest radiation. Patient is not reporting any lower extremity rashes, swelling or GI symptoms. Patient is not reporting any night sweats or diaphoresis. Patient does state that he was recently placed on prednisone and doxycycline for a COPD exacerbation, but does not use this at baseline. Patient does have an albuterol inhaler, but does not require this routinely. Patient states all I take is a thyroid medicine. Review of systems otherwise negative from a constitutional, HEENT, respiratory, cardiovascular, GI, genitourinary, musculoskeletal, skin, neurologic, psychiatric and hematologic system unless stated above. Past Medical History Past Medical History (Chronic Problems): Chronic Problems Hypothyroid (Chronic) Allergies No Known Allergies Allergy (Verified 04/26/20 14:52) Home Medications: Ambulatory Orders Medication Instructions Recorded Albuterol Inhaler [Ventolin Hfa] 1 - 2 puff INHALATION Q4H PRN PRN 04/23/20 #1 inhaler Doxycycline 100 mg PO BID #20 cap 04/23/20 Prednisone [Deltasone] 40 mg PO DAILY #10 tab 04/23/20 Levothyroxine Sodium 112 mcg PO DAILY 04/26/20 Naproxen Sodium [Aleve] 220 mg PO DAILY PRN PRN 04/26/20 Surgical History: - - Right fifth finger surgery, right eye surgery. Bilateral knee scopes, cholecystectomy. Psychiatric History: No pertinent psych hx Lives: Spouse/ Significant Other Smoking Status: Current every day smoker Tobacco Use: Cigarettes Alcohol: None Drugs: None - *Family History Maternal History Items: - - Recently related to cancer Paternal History Items: - - Did not know my dad Review of Systems Comment: See HPI Patient Problems: Active and Suspected Problems Hemoptysis (Acute) Mediastinal mass (Acute) Objective: All imaging was personally reviewed including CT scan from [facility]. This shows a large hilar mass with possible encompassing of the aorta and sub-main carinal lymphadenopathy. Patient does have some scattered left lower lobe nodules also noted. No pulmonary function tests are available for review. - Physical Exam Vitals/I&O's: Vital Signs Temp Pulse Resp BP Pulse Ox 36.6 C 71 18 141/74 H 95 04/27/20 09:04 04/27/20 09:04 04/27/20 09:04 04/27/20 09:04 04/27/20 09:04 Oxygen Delivery Method Room Air Weight: 74.843 kg Body Mass Index (BMI) 24.3 Intake and Output for Last 24 Hours 04/25/20 04/26/20 04/27/20 23:59 23:59 23:59 Intake Total 1200 / 1600 1400 / 1400 Balance 1200 / 1600 1400 / 1400 General: Alert, Oriented x3, Cooperative, No apparent distress, - - No conversational dyspnea noted. No hoarseness noted. HEENT: Atraumatic, PERRLA, EOMI, Normocephalic, - - No scleral icterus or injection noted Oral: Moist Mucosa, No Gingival or Mucosal Lesions/ Ulcerations Neck: Supple, No JVD, No Nodes, Trachea Midline Lungs: No rales, Diminished, Rhonchi - Left base, Wheezes - Left Cardiovascular: Regular rate, Regular Rhythm, Normal S1, Normal S2, No murmurs, No rub noted, No Gallop Abdomen: Bowel Sounds Present, Soft, Non Tender, Non-Distended Extremities: No cyanosis, No edema, Capillary Refill Less than 3 Seconds, Clubbing Skin: No rashes, No breakdown, - - No erythema nodosum noted Musculoskeletal: No Tenderness to Palpation of Joints or Extremities Lymphatic: No Cervical, Supraclavicular, or Inguinal Adenopathy Neurological: Cranial nerves II-XII grossly intact, Neuro grossly intact, Motor Exam 5/5 strength throughout Psych/Mental Status: Alert and oriented to time, place, person, mood and affect Laboratory Results 04/26/20 15:30: WBC 17.3 H, RBC 5.01, Hgb 14.5, Hct 44.1, MCV 88.0, MCH 28.9, MCHC 32.9, RDW Std Deviation 44.8 H, RDW Coeff of Liliana 14.0, Plt Count 327, MPV 10.4, Immature Gran % (Auto) 0.800, Neut % (Auto) 76.8 H, Lymph % (Auto) 14.6 L, [place] % (Auto) 6.8, Eos % (Auto) 0.3, Baso % (Auto) 0.7, Absolute Neuts (auto) 13.3 H, Absolute Lymphs (auto) 2.53, Nucleated RBC % 0 04/26/20 15:30: PT 12.5, INR 1.0, APTT 28.6 04/26/20 15:30: Sodium 140, Potassium 4.6, Chloride 108 H, Carbon Dioxide 25.0, Anion Gap 7, BUN 16, Creatinine 1.09, Estim Creat Clear Calc 73.87, Est GFR (MDRD) Af Amer 89, Est GFR (MDRD) Non-Af 74, BUN/Creatinine Ratio 14.7, Glucose 91, Calcium 9.4 04/27/20 06:10: WBC 18.5 H, RBC 5.10, Hgb 14.6, Hct 45.2, MCV 88.6, MCH 28.6, MCHC 32.3, RDW Std Deviation 44.8 H, RDW Coeff of Liliana 13.7, Plt Count 349, MPV 10.4, Immature Gran % (Auto) 0.700, Neut % (Auto) 62.1, Lymph % (Auto) 26.8, [place] % (Auto) 9.4, Eos % (Auto) 0.6, Baso % (Auto) 0.4, Absolute Neuts (auto) 11.5 H, Absolute Lymphs (auto) 4.96 H, Nucleated RBC % 0, Differential Comment SCANNED, Diff Path Review May foll Current Medications Acetaminophen (Acetaminophen 325 Mg Tablet) 650 mg PO Q6H PRN PRN PRN Reason: Pain Score 1-10/Temp > 100.7 F Albuterol Sulfate (Albuterol 2.5 Mg/3 Ml Vial.Neb.) 2.5 mg INHALATION Q4H PRN PRN PRN Reason: Shortness of breath, wheezing Levothyroxine Sodium (Levothyroxine 112 Mcg Tablet) 112 mcg PO DAILY@0600 [facility] Last Admin: 04/27/20 06:05 Dose: 112 mcg Documented by: Nutritional Formula (Lactose Free) (Ensure Enlive 120 Ml Liquid) 120 ml PO 4X/DAY [facility] Last Admin: 04/27/20 09:15 Dose: 120 ml Documented by: Ondansetron HCl (Ondansetron 4 Mg/2 Ml Vial) 4 mg IV Q8H PRN PRN PRN Reason: NAUSEA/VOMITING Senna/Docusate Sodium (Senna/Docusate Sodium 1 Tablet) 2 tablet PO BID PRN PRN PRN Reason: Constipation Sodium Chloride (0.9% Saline Lock 10 Ml Syringe) 10 - 40 ml IV UD PRN PRN Reason: SALINE FLUSH Zolpidem Tartrate (Zolpidem Tartrate 5 Mg Tablet) 5 mg PO QHS PRN PRN PRN Reason: INSOMNIA Clinical Impression(s) from Imaging Studies Chest X-Ray 04/26/20 15:55 IMPRESSION: No acute cardiopulmonary changes. Negative for new consolidation, volume loss or pleural effusion. Findings consistent with mass density in the superior left hilum/aortopulmonary window. Electronically Signed: Cecile Quarles MD at 16:21 EDT , Service support , Assessment/Plan All Active Problems Hemoptysis (Acute) Mediastinal mass (Acute) RECOMMENDATIONS: 1. Avoid anticoagulation and NSAIDs 2. Return if hemoptysis of greater than 100 cc 3. Plan for outpatient EBUS, possibly next week 4. Okay to continue doxycycline and prednisone as previously ordered IMPRESSIONS: 1. Acute hemoptysis secondary to left hilar mass Patient with hemoptysis, but not significant enough for bronchial artery embolization or emergent bronchoscopy. Did discuss with the patient about proceeding with a regular bronchoscopy for evaluation, but after the risks and benefits and alternatives, patient is willing to be discharged home with plans to come as an outpatient for an EBUS. Patient understands that this will offer not only diagnostic but also staging information. Discussed with the patient about the signs and symptoms that would necessitate patient to come back to the hospital for emergent bronchoscopy. Patient and voiced understanding. Tentatively, patient will be scheduled for May 05 at 12 PM. Patient will need to have prior authorization and anesthesia evaluation prior to procedure. Would hold off on codeine for cough suppressant at this time. 2. Presumed COPD Patient with some emphysematous changes noted on CAT scan. Patient does have an extensive smoking history. PRN bronchodilators are likely sufficient at this time, but patient will likely require complete pulmonary function tests and a walking oximetry as an outpatient. Patient can complete doxycycline and prednisone as previously prescribed, but this is likely not the cause of his acute hemoptysis outside of mechanical trauma of the lung mass in my opinion. 3. Hypothyroidism/unintentional weight loss Complicates care, management, recovery and prognosis. Okay to continue with baseline medications from my perspective. Patient was advised to use only Tylenol for pain control. Inpatient E&M: 46892 Init Hosp L3
--- NOTE | 2020-04-27 13:28 | CHAPLAIN ---
Type of Pastoral Visit _x__ Initial Visit ___ Follow-up Visit ___ On-call Visit ___ General Patient Visit ___ Spiritual Assessment ___ Family Conference ___ Bereavement ___ Rapid Response ___ Code Blue ___ Other (describe below) Pastoral Care Referral From _x__ Patient ___ Family ___ Nurse ___ Physician ___ Hat Conditioner ___ Retail Department Manager ___ Other (describe below) Sacrament/Intervention _x__ Active listening ___ Anointing ___ Jain ___ Bereavement ___ Communion _x__ Dunia exploration ___ _x__ Life review _x__ Prayer ___ Reconciliation ___ Sacrament of Sick _x__ Supportive presence ___ Wedding ___ Other (describe below) Pastoral Comments involved conversation with patient and his spouse; pt knows he has mass in lung and believes that he has cancer and will ; pt talks about what he would want if this is all confirmed; pt says that he has become reconciled to this and is doing ok with it; pt says I don't want to but if that is the plan then I am ok with it; pt concern is for his family; spouse is interactive in this conversation and is tearful at times; both patient and spouse have lost their mothers to cancer this year so are experiencing grief in various levels; pt open to future spiritual care support/visits if he returns to hospital; pt and spouse welcomes prayer and presence
[2020-04-27 13:59] LABS: Pathologist Review Reviewed
--- NOTE | 2020-04-27 15:56 | DCINST_ITS ---
- Discharge Diagnoses Current Active Problems: Current Active and Chronic Problems Hypothyroid (Chronic) Hemoptysis (Acute) Mediastinal mass (Acute) You will use the following diet at home:: No restrictions Your food should be the consistency of: Regular Your liquids should be the consistency of: Regular/Thin Discharge Activity: Return to Normal Activity Weight Bearing Status: Full weight bearing Allergies/Adverse Reactions: Allergies No Known Allergies Allergy (Verified 04/26/20 14:52) Medications to take at Discharge Albuterol Inhaler [Ventolin Hfa] 1 - 2 puff INHALATION Q4H PRN PRN #1 inhaler 04/23/20 Doxycycline 100 mg PO BID #20 cap 04/23/20 Prednisone [Deltasone] 40 mg PO DAILY #10 tab 04/23/20 Levothyroxine Sodium 112 mcg PO DAILY 04/26/20 Levothyroxine [Synthroid] 112 mcg PO DAILY@0600 tab 04/27/20 Primary Care Physician: West Bae MD [Primary Care Provider] - Please follow up with your Primary Care Physician in: next appointment Test Results: Test results from this visit will be discussed in further detail at your follow- up appointment, if applicable. Please Follow Up With: Chris Ramirez MD When: as instructed-call next Friday if you dont hear from office
--- NOTE | 2020-04-28 08:07 | PCM.DC.SUM ---
Discharge Date and Diagnosis - Problem List Patient Problems: Active and Suspected Problems Hemoptysis (Acute) Mediastinal mass (Acute) Date of Admission: 04/26/20 Date of Discharge: 04/27/20 - Primary Discharge Diagnosis Acute Problems: Active Problems Hemoptysis (Acute)-secondary to lung cancer Lung cancer Hypothyroidism - Secondary Discharge Diagnosis Chronic Problems: Chronic Problems Hypothyroid (Chronic) Hospital Course and Treatment Operations: None Procedures: None Summary of Care Provided: The patient is a 59 year old M was seen in the emergency room at [facility] with a chief complaint of hemoptysis with cough, he also complained of some shortness of breath. Patient had been seen on 23 April 2020, Covid test was negative at that time and work-up was grossly unremarkable and patient was discharged home on corticosteroids, albuterol, and antibiotics. The emergency room physician had received a call from radiology and radiology was suspicious the patient had hilar mass, patient had a CT scan done on 04/30/2020 which showed a mediastinal mass and a left lung mass. Labs were performed in the emergency room, patient's white blood cell count was 17.3-this was felt to be probably secondary to corticosteroid administration, patient's chemistry profile was unremarkable. Pulmonary medicine was contacted and agreed to see the patient in consultation, [facility] but had no more hemoptysis during his hospital stay. On 04/27/2020, patient was seen and examined: On examination he appeared in good health and spirits. Vital signs as documented. Skin warm and dry and without overt rashes. Neck without JVD, neck was supple, trachea midline, thyroid was normal. Lungs clear bilaterally, normal air movement was noted. Heart exam notable for regular rhythm, normal sounds and absence of murmurs, rubs or gallops. Abdomen unremarkable and without evidence of organomegaly, masses, or abdominal aortic enlargement. Bowel sounds are present, abdomen is not distended. Extremities nonedematous, no cyanosis was noted, no clubbing was noted. Neuro: Cranial nerves II through XII are grossly intact, no focal motor deficits were noted, sensation to light touch and pinprick intact, motor exam 5/5 throughout. Psych: Patient is alert and oriented x3, he does not appear anxious or depressed, he does not appear agitated. Patient was discharged home in stable condition on 04/27/2020. Patient will be set up for IBUS as an outpatient by pulmonary medicine. Patient Problems: Active and Suspected Problems Hemoptysis (Acute) Mediastinal mass (Acute) - Physical Exam Vitals/I&O's: Vital Signs Temp Pulse Resp BP Pulse Ox 97.7 F L 72 18 143/76 H 98 04/27/20 16:50 04/27/20 16:50 04/27/20 16:50 04/27/20 16:50 04/27/20 16:50 Oxygen Delivery Method Room Air Weight: 74.843 kg Body Mass Index (BMI) 24.3 Intake and Output for Last 24 Hours 04/26/20 04/27/20 04/28/20 23:59 23:59 23:59 Intake Total 1200 / 1600 1400 / 1400 Balance 1200 / 1600 1400 / 1400 Laboratory Results 04/27/20 06:10: Diff Path Review Reviewed Discharge Activity: Return to Normal Activity Weight Bearing Status: Full weight bearing Home Medications: Medications to take at Discharge Albuterol Inhaler [Ventolin Hfa] 1 - 2 puff INHALATION Q4H PRN PRN #1 inhaler 04/23/20 Doxycycline 100 mg PO BID #20 cap 04/23/20 Prednisone [Deltasone] 40 mg PO DAILY #10 tab 04/23/20 Levothyroxine Sodium 112 mcg PO DAILY 04/26/20 Levothyroxine [Synthroid] 112 mcg PO DAILY@0600 tab 04/27/20 Primary Care Physician: West Bae MD [Primary Care Provider] - Please follow up with your Primary Care Physician in: next appointment Please Follow Up With: Chris Ramirez MD When: as instructed-call next Friday if you dont hear from office Disposition: Home Minutes spent on discharge:: 30 Patient Condition:: Stable Medical Necessity - Tobacco Use Smoking Status: Current every day smoker Tobacco Use: Cigarettes Meaningful Use Info Meaningful Use Diagnoses (Choose all that apply): None applicable OBSV E&M: 42364 Observation care discharge
== END 2020-04-27 16:50 | disposition home or self-care (01) ==
LOC: ED 16:24 → MS3 17:15
PROVIDERS: Admitting Provider Hospitalist; Emergency Provider Emergency Medicine; PCP Family Medicine; Visit Provider Internal Medicine
DX: R04.2 Hemoptysis (principal); R22.2 Localized swelling, mass and lump, trunk; E03.9 Hypothyroidism, unspecified; Z79.899 Other long term (current) drug therapy; J44.9 Chronic obstructive pulmonary disease, unspecified; F17.210 Nicotine dependence, cigarettes, uncomplicated; C34.90 Malignant neoplasm of unspecified part of unspecified bronchus or lung
CPT/HCPCS: 36415; 71045; 80048; 85025; 85610; 85730; 93005; 96360; 96361; 97802; 99218; 99281; 99285; J7030; A4216; G0378

== ENCOUNTER 2020-05-05 11:02 | Day surgery (SDC) | payer OTHER, SELFPAY ==
[2020-04-26 17:32] VITALS: BMI 24.3
[2020-05-05] VITALS (17 sets, daily range): BP systolic 91–114; BP diastolic 52–85; PULSE 58–84; RESP 16–20; TEMP 36–36.9; O2SAT 92–100; BMI 24.2
--- NOTE | 2020-05-05 | IMM_PTH ---
PATIENT: AARON FOWLER LOC: EN U#:[id number] AGE/SX: 59/M ROOM: RE05/05/[address]: Dr. Chris Ramirez MD : 1960 BED: DIS: 05/05/2020 SPEC #: [id number] RECD: 05/09/20 13:11 STATUS: JANAE REQ #: [id number] BRANDIE: 05/05/20 00:[address]: Chris Ramirez DEPT: IMMUNOHISTOCHEMISTRY RECD BY: Marily Jacome ENTERED: 05/09/20 13:13 SP TYPE: IMMUNO OTHR DR: Dr. West Bae MD Tissues: Lung, NOS Procedures: Synapto (add) CD45 (add) CD56 (add) CHROMO (add) CK20 (add) CK7 (add) CK8 (add) TTF1 (add) Pankeratin (initial) PHYSICIAN & INSTITUTION [place] [id number] SPECIMEN INFORMATION: Tissue Source: Left main, endobronchial biopsy Clinical Info: Lung mass Specimen Number: [id number] CPT code: 26818, 56384 x8 METHODOLOGY: Deparaffinized sections of prefer/formalin-fixed tissue or PAP/DQ stained slides are incubated with monoclonal/polyclonal antibodies/oligonucleotide probes. Localization is made via biotin free immunoperoxidase method. Appropriate controls are performed and reacted as expected. Results on target cell population are indicated in the following table: RESULTS: ANTIBODY / CLONE RESULT AE1-3 (AE1/AE3/PCK26) positive CK7 (OV-TL12/30) positive CK8 (87rcnmQ36) positive CK20 (KS20.8) negative CD45 (RP2/18) negative CD56 (123C3.D5) positive Chromo (LK2H10) positive Synapto (polyclonal) positive TTF-1 (8G7G3/1) positive These tests were developed and their performance characteristics determined by [facility]. They may not have been cleared or approved by the U.S. Food and Drug Administration. The FDA has determined that such clearance or approval is not necessary. The above immunohistochemical/dualISH markers are ordered and reviewed by the Pathologist. INTERPRETATION: Left main, endobronchial biopsy: Small cell carcinoma. RICHI:josé manuel 05/10/20
--- NOTE | 2020-05-05 | LUNB_PTH ---
PATIENT: AARON FOWLER LOC: EN U#:[id number] AGE/SX: 59/M ROOM: RE05/05/[address]: Dr. Chris Ramirez MD : 1960 BED: DIS: 05/05/2020 SPEC #: [id number] RECD: 05/05/20 14:03 STATUS: JANAE ASHUTOSH #: [id number] BRANDIE: 05/05/20 00:[address]: Chris Ramirez DEPT: SURGICAL PATHOLOGY RECD BY: Carrol Tolbert ENTERED: 05/08/20 07:53 SP TYPE: LUNG BX OTHR DR: Dr. West Bae MD Tissues: Lung, NOS Procedures: Surgery Specimen Level IV HEADER OPERATION: EBUS PRE-OP DIAGNOSIS: Lung mass TISSUE SUBMITTED: Endobronchial biopsy left main MICROSCOPIC DIAGNOSIS Endobronchial biopsy, left main: Small cell carcinoma. See comment. RICHI:josé manuel 05/09/20 COMMENT Immunohistochemistry ([id number]) supports the above diagnosis. Please correlate with corresponding cytology ([id number]) EBUS, TBNA, site 4L with diagnosis of small cell carcinoma. Molecular studies on the tumor can be performed, if clinically inidicated, please notify the laboratory if they are needed. Case has been reviewed in consultation with Dr. Garcia who concurs with the above diagnosis. IDC:AM MICROSCOPIC DESCRIPTION Slides are reviewed. GROSS DESCRIPTION Received in fixative is one container labeled with the patient's name and designated endobronchial biopsy left main. The specimen consists of multiple irregular fragments of sheridan soft tissue that in aggregate measure 0.3 x 0.3 x 0.1 cm. The specimen is totally submitted in one cassette. / SJ:josé manuel 05/08/20 TC:0 CPT: 22602
--- NOTE | 2020-05-05 | ASPIG_PTH ---
PATIENT: AARON FOWLER LOC: EN U#:[id number] AGE/SX: 59/M ROOM: RE05/05/[address]: Dr. Chris Ramirez MD : 1960 BED: DIS: 05/05/2020 SPEC #: [id number] RECD: 05/05/20 12:57 STATUS: JANAE ASHUTOSH #: [id number] BRANDIE: 05/05/20 00:[address]: Chris Ramirez DEPT: CYTOLOGY RECD BY: Carrol Tolbert ENTERED: 05/05/20 13:00 SP TYPE: ASP OUT OTHR DR: Dr. West Bae MD Tissues: A - Lung, NOS B - Lung, NOS C - Lung, NOS Procedures: FNA Specimen Adequacy Special Stain Group II Surgery Specimen Level IV Cytology Other HEADER OPERATION: EBUS PRE-OP DIAGNOSIS: Left mainstem mass, hilar lymphadenopathy, mediastinal adenopathy TISSUE SUBMITTED: A - EBUS, TBNA, site 4L #1, B - EBUS, TBNA, site 4L #2, C - EBUS, TBNA, site?4L, D - Bronch wash fluid for cytology, E - Brushings 4L slides x3 DIAGNOSIS CYTOLOGY A. EBUS, TBNA, site 4L #1 (smears): Positive for malignant cells, consistent with small cell carcinoma. B. EBUS, TBNA, site 4L #2 (smears): Negative for malignant cells. Respiratory epithelial cells are noted. C. EBUS, TBNA, site 4L fluid (cell block): Acellular specimen. D. Bronchial washing fluid (cytospin and cell block): Negative for malignant cells. E. Bronchial brushings, 4L (smears): Negative for malignant cells. SJ:josé manuel 05/09/20 COMMENT The specimen is evaluated at the time of procedure by Dr. Glasgow. Rapid Onsite Evaluation: A. EBUS, TBNA, site 4L #1: Positive for malignant cells. Differential diagnosis, small cell carcinoma vs lymphoma. B. EBUS, TBNA, site 4L #2: Negative for malignant cells. Respiratory epithelial cells. Please correlate with corresponding surgical specimen ([id number]) endobronchial biopsy, left main with diagnosis of small cell carcinoma. Case has been reviewed in consultation with Dr. Garcia who concurs with the above diagnosis. IDC:AM CYTOLOGY STUDY Slides are reviewed. CYTOLOGY GROSS A - Received labeled with the patient's name and and designated EBUS, TBNA, site 4L #1. The specimen consists of two stained smears for CHAPIS (Rapid Onsite Evaluation). / [facility] 05/05/20 B - Received labeled with the patient's name and and designated EBUS, TBNA, site 4L #2. The specimen consists of two stained smears for CHAPIS. / [facility] 05/05/20 C - Received in RPMI is 30 ml of pink fluid, needle rinsed fluid labeled with the patient's name and and designated EBUS, TBNA, site 4L. Half of the specimen is saved for flow cytometry study, if needed, rest of the specimen is submitted for cell block preparation. / [facility] 05/05/20 D - Received is 30 ml of red hazy fluid labeled with the patient's name and and designated per the requisition as bronchial washings. Submitted for cytology preparation including cell block. / 05/08/20 E - Received are three smears labeled with the patient's name and designated per the requisition as bronchial brushings 4L. Submitted for staining. / 05/08/20 TC:0 CPT: 05735 x2, 33850, 26263, 90042, 82160, 72958
[2020-05-05] MEDS: Lactated Ringers 1,000 ML 100 ML IV ×2 (11:31→12:45)
--- NOTE | 2020-05-05 12:10 | PCM.HP.BLA ---
Problem List (1) Hypothyroid Status: Chronic Qualifiers: (2) Hemoptysis Status: Acute (3) Mediastinal mass Status: Acute History and Physical Date of Admission: 05/05/20 - EBUS Addendum: Below is a consult written on 04/27/2020. Patient states he has been doing well since discharge from the hospital. Patient's hemoptysis has significantly improved. Patient is not reporting any constitutional symptoms. Physical exam and laboratory were all reviewed and have not changed. All answers were given for the patient and his to questions that were asked preoperatively. Signs and symptoms for return to the emergency department were also reviewed. Problem List (1) Mediastinal mass Status: Acute (2) Hypothyroid Status: Chronic Qualifiers: Hypothyroidism type: due to acquired atrophy of thyroid Qualified Code(s): E03.4 - Atrophy of thyroid (acquired) (3) Hemoptysis Status: Acute Reason for Consult Date of Consultation: 04/27/20 Reason for Consultation: Hemoptysis History of Present Illness: The patient is a 59 year old M, with past medical history listed below, who presented to [facility] on 04/26/2020 secondary to a new onset of hemoptysis. Patient had reportedly been to the ER previously and diagnosed with a COPD exacerbation 8 days previously. Patient was placed on steroids, albuterol and antibiotics and discharged home. On the day of presentation, patient was called and stated there was some suspicion for hilar mass. Patient had a CT done at the [facility] showing a bulky left hilar mass. However, on the day of presentation, patient states he had a cough productive of approximately 100 cc of bright red blood. Patient states that he was scared and came to the ER for evaluation. Given continuing blood, patient was admitted for observation overnight. In the ER, patient was saturating well on room air. EKG showed no acute ischemia. Patient did have a leukocytosis of 17.3, but hemoglobin was normal at 14.5. Coagulation studies were unremarkable. Chemistries were okay. Patient was admitted to the floor for observation. Patient reports that he does have an extensive smoking history. Patient never had a previous CAT scan or chest x-ray that he is aware of. Patient states that he has had approximately 10 pound weight loss over the last month or so. Patient does have a cough at baseline productive of clear to white sputum, but thought this was secondary to his COPD. 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 Patient denies any family history of cancer. Patient has never had chest radiation. Patient is not reporting any lower extremity rashes, swelling or GI symptoms. Patient is not reporting any night sweats or diaphoresis. Patient does state that he was recently placed on prednisone and doxycycline for a COPD exacerbation, but does not use this at baseline. Patient does have an albuterol inhaler, but does not require this routinely. Patient states all I take is a thyroid medicine. Review of systems otherwise negative from a constitutional, HEENT, respiratory, cardiovascular, GI, genitourinary, musculoskeletal, skin, neurologic, psychiatric and hematologic system unless stated above. Past Medical History Past Medical History (Chronic Problems): Chronic Problems Hypothyroid (Chronic) Allergies No Known Allergies Allergy (Verified 04/26/20 14:52) Home Medications: Ambulatory Orders Medication Instructions Recorded Albuterol Inhaler [Ventolin Hfa] 1 - 2 puff INHALATION Q4H PRN PRN 04/23/20 #1 inhaler Doxycycline 100 mg PO BID #20 cap 04/23/20 Prednisone [Deltasone] 40 mg PO DAILY #10 tab 04/23/20 Levothyroxine Sodium 112 mcg PO DAILY 04/26/20 Naproxen Sodium [Aleve] 220 mg PO DAILY PRN PRN 04/26/20 Surgical History: - - Right fifth finger surgery, right eye surgery. Bilateral knee scopes, cholecystectomy. Psychiatric History: No pertinent psych hx Lives: Spouse/ Significant Other Smoking Status: Current every day smoker Tobacco Use: Cigarettes Alcohol: None Drugs: None - *Family History Maternal History Items: - - Recently related to cancer Paternal History Items: - - Did not know my dad Review of Systems Comment: See HPI Patient Problems: Active and Suspected Problems Hemoptysis (Acute) Mediastinal mass (Acute) Objective: All imaging was personally reviewed including CT scan from [facility]. This shows a large hilar mass with possible encompassing of the aorta and sub-main carinal lymphadenopathy. Patient does have some scattered left lower lobe nodules also noted. No pulmonary function tests are available for review. - Physical Exam Vitals/I&O's: Vital Signs Temp Pulse Resp BP Pulse Ox 36.6 C 71 18 141/74 H 95 04/27/20 09:04 04/27/20 09:04 04/27/20 09:04 04/27/20 09:04 04/27/20 09:04 Oxygen Delivery Method Room Air Weight: 74.843 kg Body Mass Index (BMI) 24.3 Intake and Output for Last 24 Hours 04/25/20 04/26/20 04/27/20 23:59 23:59 23:59 Intake Total 1200 / 1600 1400 / 1400 Balance 1200 / 1600 1400 / 1400 General: Alert, Oriented x3, Cooperative, No apparent distress, - - No conversational dyspnea noted. No hoarseness noted. HEENT: Atraumatic, PERRLA, EOMI, Normocephalic, - - No scleral icterus or injection noted Oral: Moist Mucosa, No Gingival or Mucosal Lesions/ Ulcerations Neck: Supple, No JVD, No Nodes, Trachea Midline Lungs: No rales, Diminished, Rhonchi - Left base, Wheezes - Left Cardiovascular: Regular rate, Regular Rhythm, Normal S1, Normal S2, No murmurs, No rub noted, No Gallop Abdomen: Bowel Sounds Present, Soft, Non Tender, Non-Distended Extremities: No cyanosis, No edema, Capillary Refill Less than 3 Seconds, Clubbing Skin: No rashes, No breakdown, - - No erythema nodosum noted Musculoskeletal: No Tenderness to Palpation of Joints or Extremities Lymphatic: No Cervical, Supraclavicular, or Inguinal Adenopathy Neurological: Cranial nerves II-XII grossly intact, Neuro grossly intact, Motor Exam 5/5 strength throughout Psych/Mental Status: Alert and oriented to time, place, person, mood and affect Laboratory Results 04/26/20 15:30: WBC 17.3 H, RBC 5.01, Hgb 14.5, Hct 44.1, MCV 88.0, MCH 28.9, MCHC 32.9, RDW Std Deviation 44.8 H, RDW Coeff of Liliana 14.0, Plt Count 327, MPV 10.4, Immature Gran % (Auto) 0.800, Neut % (Auto) 76.8 H, Lymph % (Auto) 14.6 L, [place] % (Auto) 6.8, Eos % (Auto) 0.3, Baso % (Auto) 0.7, Absolute Neuts (auto) 13.3 H, Absolute Lymphs (auto) 2.53, Nucleated RBC % 0 04/26/20 15:30: PT 12.5, INR 1.0, APTT 28.6 04/26/20 15:30: Sodium 140, Potassium 4.6, Chloride 108 H, Carbon Dioxide 25.0, Anion Gap 7, BUN 16, Creatinine 1.09, Estim Creat Clear Calc 73.87, Est GFR (MDRD) Af Amer 89, Est GFR (MDRD) Non-Af 74, BUN/Creatinine Ratio 14.7, Glucose 91, Calcium 9.4 04/27/20 06:10: WBC 18.5 H, RBC 5.10, Hgb 14.6, Hct 45.2, MCV 88.6, MCH 28.6, MCHC 32.3, RDW Std Deviation 44.8 H, RDW Coeff of Liliana 13.7, Plt Count 349, MPV 10.4, Immature Gran % (Auto) 0.700, Neut % (Auto) 62.1, Lymph % (Auto) 26.8, [place] % (Auto) 9.4, Eos % (Auto) 0.6, Baso % (Auto) 0.4, Absolute Neuts (auto) 11.5 H, Absolute Lymphs (auto) 4.96 H, Nucleated RBC % 0, Differential Comment SCANNED, Diff Path Review May foll Current Medications Acetaminophen (Acetaminophen 325 Mg Tablet) 650 mg PO Q6H PRN PRN PRN Reason: Pain Score 1-10/Temp > 100.7 F Albuterol Sulfate (Albuterol 2.5 Mg/3 Ml Vial.Neb.) 2.5 mg INHALATION Q4H PRN PRN PRN Reason: Shortness of breath, wheezing Levothyroxine Sodium (Levothyroxine 112 Mcg Tablet) 112 mcg PO DAILY@0600 [facility] Last Admin: 04/27/20 06:05 Dose: 112 mcg Documented by: Nutritional Formula (Lactose Free) (Ensure Enlive 120 Ml Liquid) 120 ml PO 4X/DAY [facility] Last Admin: 04/27/20 09:15 Dose: 120 ml Documented by: Ondansetron HCl (Ondansetron 4 Mg/2 Ml Vial) 4 mg IV Q8H PRN PRN PRN Reason: NAUSEA/VOMITING Senna/Docusate Sodium (Senna/Docusate Sodium 1 Tablet) 2 tablet PO BID PRN PRN PRN Reason: Constipation Sodium Chloride (0.9% Saline Lock 10 Ml Syringe) 10 - 40 ml IV UD PRN PRN Reason: SALINE FLUSH Zolpidem Tartrate (Zolpidem Tartrate 5 Mg Tablet) 5 mg PO QHS PRN PRN PRN Reason: INSOMNIA Clinical Impression(s) from Imaging Studies Chest X-Ray 04/26/20 15:55 IMPRESSION: No acute cardiopulmonary changes. Negative for new consolidation, volume loss or pleural effusion. Findings consistent with mass density in the superior left hilum/aortopulmonary window. Electronically Signed: Cecile Quarles MD at 16:21 EDT , Service support , Assessment/Plan All Active Problems Hemoptysis (Acute) Mediastinal mass (Acute) RECOMMENDATIONS: 1. Avoid anticoagulation and NSAIDs 2. Return if hemoptysis of greater than 100 cc 3. Plan for outpatient EBUS, possibly next week 4. Okay to continue doxycycline and prednisone as previously ordered IMPRESSIONS: 1. Acute hemoptysis secondary to left hilar mass Patient with hemoptysis, but not significant enough for bronchial artery embolization or emergent bronchoscopy. Did discuss with the patient about proceeding with a regular bronchoscopy for evaluation, but after the risks and benefits and alternatives, patient is willing to be discharged home with plans to come as an outpatient for an EBUS. Patient understands that this will offer not only diagnostic but also staging information. Discussed with the patient about the signs and symptoms that would necessitate patient to come back to the hospital for emergent bronchoscopy. Patient and voiced understanding. Tentatively, patient will be scheduled for May 05 at 12 PM. Patient will need to have prior authorization and anesthesia evaluation prior to procedure. Would hold off on codeine for cough suppressant at this time. 2. Presumed COPD Patient with some emphysematous changes noted on CAT scan. Patient does have an extensive smoking history. PRN bronchodilators are likely sufficient at this time, but patient will likely require complete pulmonary function tests and a walking oximetry as an outpatient. Patient can complete doxycycline and prednisone as previously prescribed, but this is likely not the cause of his acute hemoptysis outside of mechanical trauma of the lung mass in my opinion. 3. Hypothyroidism/unintentional weight loss Complicates care, management, recovery and prognosis. Okay to continue with baseline medications from my perspective. Patient was advised to use only Tylenol for pain control.
--- NOTE | 2020-05-05 13:07 | OP.BRONCH_ITS ---
Patient Name: Good Darden Procedure Date: 05/05/2020 11:23 AM Date of : 1960 Age: 59 Procedure: Bronchoscopy Indications: Left mainstem mass, Hilar lymphadenopathy of the left side, Mediastinal adenopathy Providers: Chris Ramirez MD Referring MD: [place] [facility] Medicines: See the Anesthesia note for documentation of the administered medications Complications: No immediate complications Procedure: Pre-Anesthesia Assessment: - A History and Physical has been performed. Patient meds and allergies have been reviewed. The risks and benefits of the procedure and the sedation options and risks were discussed with the patient. All questions were answered and informed consent was obtained. Patient identification and proposed procedure were verified prior to the procedure by the physician, the nurse and the dry cleaner helper in the procedure room. Mental Status Examination: alert and oriented. Airway Examination: normal oropharyngeal airway. Respiratory Examination: clear to auscultation. CV Examination: RRR, no murmurs, no S3 or S4. ASA Grade Assessment: III - A patient with severe systemic disease. After reviewing the risks and benefits, the patient was deemed in satisfactory condition to undergo the procedure. The anesthesia plan was to use monitored anesthesia care (MAC). Immediately prior to administration of medications, the patient was re-assessed for adequacy to receive sedatives. The heart rate, respiratory rate, oxygen saturations, blood pressure, adequacy of pulmonary ventilation, and response to care were monitored throughout the procedure. The physical status of the patient was re-assessed after the procedure. After I obtained informed consent, the scope was passed under direct vision. Throughout the procedure, the patient's blood pressure, pulse, and oxygen saturations were monitored continuously. The ultrasound bronchoscope was introduced through the mouth, via laryngeal mask airway and advanced to the tracheobronchial tree of both lungs. The procedure was accomplished without difficulty. The patient tolerated the procedure well. Findings: Fullness noted of the left false cord. 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 Right Lung Abnormalities: Notable, mucoid, white secretions were found throughout the right tracheobronchial tree. They were not obstructing the airway. Left Lung Abnormalities: An area of friable mucosa was found in the left mainstem bronchus. A partially obstructing (about 40% obstructed) mass was found 3 cm from the bifurcation (judith) in the left mainstem bronchus. The mass was medium-sized and exophytic, friable and fungating. The lesion was successfully traversed to the LLL. Rapid On-Site Evaluation (CHAPIS): Preliminary cytology of the lesion in the left paratracheal (AP window) area was suggestive of small cell carcinoma (final results are pending). Transbronchial needle aspiration of a mass was performed in the left paratracheal (AP window) area using an Olympus EBUS-TBNA 19 gauge needle and sent for routine cytology. The procedure was guided by ultrasound. Three samples were obtained. Endobronchial biopsies were performed in the left mainstem bronchus using forceps and sent for histopathology examination. Five samples were obtained. Guided brushings were obtained in the left mainstem bronchus into the left upper lobe and left lower lobe with a cytology brush and sent for routine cytology. One sample was obtained. Trachea/Judith Abnormalities: An airway deviation without narrowing of the lumen was found in the mid trachea. Impression: - Left mainstem mass - Hilar lymphadenopathy of the left side - Mediastinal adenopathy - Notable, mucoid, white secretions were found throughout the tracheobronchial tree. - Friable mucosa was found in the left mainstem bronchus. - An exophytic, friable and fungating mass was found in the left mainstem bronchus. This lesion is likely malignant. - Rapid On-Site Evaluation (CAHPIS): Preliminary cytology of the lesion in the left paratracheal (AP window) area was suggestive of small cell carcinoma (final results are pending). - A transbronchial needle aspiration was performed. - An endobronchial biopsy was performed. - Brushings were obtained. - An airway deviation without narrowing of the lumen was found in the mid trachea. Recommendation: - The patient will be observed post-procedure, until all discharge criteria are met. - Await biopsy, brushing and cytology results. - Patient has a contact number available for emergencies. The signs and symptoms of potential delayed complications were discussed with the patient. Return to normal activities tomorrow. Written discharge instructions were provided to the patient. - Follow up with bronchoscopist in one week. Procedure Code(s): --- Professional --- 28342, Bronchoscopy, rigid or flexible, including fluoroscopic guidance, when performed; with transbronchial needle aspiration biopsy(s), trachea, main stem and/or lobar bronchus(i) 37875, Bronchoscopy, rigid or flexible, including fluoroscopic guidance, when performed; with brushing or protected brushings 84067, Bronchoscopy, rigid or flexible, including fluoroscopic guidance, when performed; with transendoscopic endobronchial ultrasound (EBUS) during bronchoscopic diagnostic or therapeutic intervention(s) for peripheral lesion(s) (List separately in addition to code for primary procedure[s]) Diagnosis Code(s): --- Professional --- R91.8, Other nonspecific abnormal finding of lung field R59.0, Localized enlarged lymph nodes J98.9, Respiratory disorder, unspecified J39.8, Other specified diseases of upper respiratory tract CPT copyright 2017 [employer]. All rights reserved. The codes documented in this report are preliminary and upon clothing trades workers review may be revised to meet current compliance requirements. MD Chris Cortes MD 05/05/2020 1:07:00 PM This report has been signed electronically. Number of Addenda: 0 Note Initiated On: 05/05/2020 11:23 AM
[2020-05-05] MEDS: Lidocaine 2% Jelly 1 APPLIC Tube (13:43)
[2020-05-05 14:11] LABS: Cytology, Body Fluid / CSF SEE PATHOLOGY REPORT
== END 2020-05-05 16:09 | disposition home or self-care (01) ==
LOC: EN 11:03 → AC 11:05
PROVIDERS: Anesthesiology; PCP Family Medicine; Referring Provider Family Medicine; Visit Provider Internal Medicine Critical Care Medicine
PROC: BB4BZZZ Ultrasonography of Pleura (ICD-10-PCS; CPT 31623; principal; 2020-05-05 11:30)
DX: C34.02 Malignant neoplasm of left main bronchus (principal); R59.0 Localized enlarged lymph nodes; J98.9 Respiratory disorder, unspecified; J39.8 Other specified diseases of upper respiratory tract; E03.9 Hypothyroidism, unspecified; F17.210 Nicotine dependence, cigarettes, uncomplicated; Z79.899 Other long term (current) drug therapy
CPT/HCPCS: 31623; 31629; 31654; 87070; 87205; 87635; 88108; 88161; 88172; 88305; 88313; 88341; 88342; C9803; J7120; J2405; U0003

== ENCOUNTER → 2020-05-16 07:08 | Outpatient (CLI) | payer OTHER, SELFPAY ==
[2020-05-12 10:53] VITALS: BMI 24.9
--- NOTE | 2020-05-17 13:07 | PFT ---
INTRODUCTION: The patient is a 59-year-old male that presents for pulmonary function studies secondary to a diagnosis of small cell lung cancer. Respiratory therapy reports good patient effort. Bronchodilators were used during testing. INTERPRETATION: Forced expiration spirometry demonstrates no evidence of a large airways obstructive ventilatory defect. There was no significant response to aerosolized bronchodilators, based upon strict ATS criteria. Spirograms are of good quality and plateau gradually. Body plethysmography was performed and reveals lung volumes to be within normal limits. Diffusing capacity by single breath CO is also within normal limits at 92% of predicted. IMPRESSION: Grossly normal pulmonary function studies.
== END ==
PROVIDERS: PCP Family Medicine; Referring Provider Internal Medicine Critical Care Medicine; Visit Provider Internal Medicine Critical Care Medicine
DX: C34.32 Malignant neoplasm of lower lobe, left bronchus or lung (principal)
CPT/HCPCS: 94060; 94726; 94729

== ENCOUNTER → 2020-05-26 09:28 | Outpatient (CLI) | payer OTHER, SELFPAY ==
[2020-05-12 10:53] VITALS: BMI 24.9
--- NOTE | 2020-05-26 09:34 | MRI_ITS ---
STUDY: MRI BRAIN WITHOUT CONTRAST REASON FOR EXAM: Male, 59 years old. PARTIAL SCAN, NON CONTRAST, Pt. COUGHING UP BLOOD AND VOMITING and lt; SENT TO ER BY ORDERING DOCTOR -- New small cell lung CA diagnosis TECHNIQUE: Standardized multiplanar fat and water weighted pulse sequences were obtained. COMPARISON: Head CT dated August 28, 2012. FINDINGS: 2 Ring metastatic lesions are present in the right occipital lobe near the parietal lobe junction measuring 7.8 and 9.2 mm respectively. A similar lesion is present in the central cortical region and posterior aspect of the left temporal lobe measuring 1.16 cm. A fourth metastatic implant is seen in the inferior medial aspect of the left cerebellar lobe/acromion junction measuring 6.7 mm. A second metastatic implant is present in the same region measuring 5.8 mm. A 7.8 mm metastatic lesion is present in the posterior aspect of the right temporal fossa see image #8/25 series 5. Normal size of the ventricles and extra-axial spaces for the patient''s age. Other than the metastatic lesions, unremarkable white matter tracts of the supratentorial brain. There is no evidence for recent intracranial ischemia or other cause of cytotoxic edema on diffusion weighted imaging (DWI). Normal bilateral basal ganglia. Normal thalami. There is no extra-axial fluid accumulation. Normal flow voids within the major intracranial circulation suggesting patency by spin echo criteria. Normal sella turcica, pituitary gland, infundibular stalk, optic chiasm and hypothalamus. Normal tectal plate and pineal gland. Normal midbrain, lindsay and medulla. Normal cerebellum. Normal basal cisterns. Normal bilateral temporal bones. Normal bilateral internal auditory canals. No demonstrated orbital abnormality, within the constraints of a routine brain study. Normal visualized paranasal sinuses. Normal calvarium and skull base. Normal visualized soft tissue structures. Normal visualized upper cervical spine. MRI/Brain without Contrast IMPRESSION: 1. 6 metastatic lesions involving the right occipital lobe, left cerebellar vermis and junction, and left temporal lobe. 2. No acute infarct. Electronically Signed: Ismael Lee MD at 15:49 EST , Service support ,
== END ==
PROVIDERS: PCP Family Medicine; Referring Provider Internal Medicine Critical Care Medicine; Visit Provider Internal Medicine Critical Care Medicine
DX: C34.90 Malignant neoplasm of unspecified part of unspecified bronchus or lung (principal)
CPT/HCPCS: 70551

== ENCOUNTER 2020-05-26 10:42 | Inpatient (IN) | payer OTHER, SELFPAY ==
[2020-05-12 10:53] VITALS: BMI 24.9
[2020-05-26] VITALS (7 sets, daily range): BP systolic 111–156; BP diastolic 73–91; PULSE 54–72; RESP 15–18; TEMP 36.1–36.8; O2SAT 93–99; BMI 24.8; BMI 25.7
--- NOTE | 2020-05-26 11:18 | CT_ITS ---
STUDY: CT ABDOMEN AND PELVIS WITH CONTRAST REASON FOR EXAM: Male, 59 years old. HEMOPTYSIS, Recent diagnosis lung cancer. RADIATION DOSAGE (If Supplied By Facility): CTDIvol = ( 13.45 ) mGy, DLP = ( 1012.71 ) mGycm TECHNIQUE: Transaxial images were obtained from the dome of the diaphragm to the symphysis pubis without oral contrast. IV 100ML ISOVUE 370 was administered. Sagittal and coronal images were reconstructed. Individualized dose optimization techniques were used for this CT. COMPARISON: CT of abdomen and pelvis dated NOVEMBER 22, 2011 and February 10, 2019 FINDINGS: Interval appearance of a 7.1 mm nodule in the anterior lateral aspect of the right lower lobe. Mild dependent atelectasis and edema is present in the left lung base. Interval appearance of a 2.54 x 1.77 cm primarily hypodense rounded lesion in the posterior dome of the right lobe of the liver likely representing a metastatic lesion. 2 smaller lesions have developed in the medial and inferior aspect of the right lobe of the liver see image #30/117 series 2. These lesions measure 8.6 mm and 1.61 cm respectively. Unremarkable left lobe of the liver on the current study. There are surgical clips in the gallbladder fossa consistent with a prior cholecystectomy. Interval appearance of rounded hypodense subcapsular lesion in the medial aspect of the spleen near the kidney measuring 1.72 cm in diameter. This lesion is also concerning for a metastatic implant. Normal pancreas. Normal right adrenal gland. Interval appearance of a moderate size 1.88 cm hypodense lesion of the left adrenal gland suspicious for metastatic disease. Normal right kidney. Normal left kidney. Normal visualized stomach. Normal small intestine. Normal colon. The appendix is visualized and appears normal. There is diffuse atherosclerotic calcification of the abdominal aorta, without a demonstrated aneurysm. Normal inferior vena cava. Normal retroperitoneum. Normal urinary bladder. There are prostatic calcifications. Mild enlargement of the right side of the prostate gland herniating into the base of the bladder. Small fat-containing right hernia is present. Normal osseous structures. CT/Abdomen/Pelvis W IV Cont ONLY IMPRESSION: 1. Interval appearance of a 7.1 mm nodule in the anterior lateral aspect of the right lower lobe. Mild dependent atelectasis and edema is present in the left lung base. 2. Interval development of liver metastatic lesions = Interval appearance of a 2.54 x 1.77 cm primarily hypodense rounded lesion in the posterior dome of the right lobe of the liver likely representing a metastatic lesion. 2 smaller lesions have developed in the medial and inferior aspect of the right lobe of the liver see image #30/117 series 2. These lesions measure 8.6 mm and 1.61 cm respectively. Unremarkable left lobe of the liver on the current study. 3. 1.72 cm splenic lesion likely representing metastatic implants 4. Interval appearance of a moderate size 1.88 cm hypodense lesion of the left adrenal gland suspicious for metastatic disease Electronically Signed: Ismael Lee MD at 14:44 EST , Service support ,
--- NOTE | 2020-05-26 11:18 | CT_ITS ---
STUDY: CTA CHEST REASON FOR EXAM: Male, 59 years old. HEMOPTYSIS, Recent diagnosis lung cancer. RADIATION DOSAGE (If Supplied By Facility): CTDIvol = ( 13.45 ) mGy, DLP = ( 1012.71 ) mGycm TECHNIQUE: The examination was performed with the intravenous administration of IV 100ML ISOVUE 370. Post-processing of the angiographic images was performed, with multiplanar reformation and 3D reconstruction. Individualized dose optimization techniques were used for this CT. COMPARISON: CT of the chest dated April 25, 2020. CT of abdomen and pelvis dated May 26, 2020 FINDINGS: Mild interval enlargement of the left hilar/subcarinal conglomerate of abnormal lymph nodes or malignant mass from 3.13 cm to 3.65 cm. Mild interval enlargement of the abnormal bilateral hilar and diffuse mediastinal lymph nodes. Mild axillary lymphadenopathy is present. Spiculated nodular components extend from the mediastinal mass to the superior segment of the left lower lobe. 7.1 mm nodule is present in the anterior lateral aspect of the right lower lobe. No additional nodules are seen in either lung. No pleural effusion or pneumonic consolidation is seen. No pneumothorax is present. Normal enhancement of the main pulmonary artery and right and left pulmonary arteries. Several occlusive emboli are present in the secondary arterial branches of the right pulmonary artery supplying the superior segment of the right lower lobe see images 97 through 103 series 1002. Normal thoracic aorta and visualized great vessels. There is no demonstrated aortic dissection. Normal heart and pericardium. Normal mediastinum. Normal hilar regions. Normal visualized trachea and bronchi. The lungs are well expanded. Normal pulmonary parenchyma. Normal pleura. Normal chest wall structures. There are degenerative changes of thoracic spine. Abdominal and pelvic findings are on a separate report. Multiple anesthetic lesions to the right lobe the liver are described on that report. CT/CTA Chest W/WO Contrast IMPRESSION: 1. Several occlusive emboli are present in the secondary arterial branches of the right pulmonary artery supplying the superior segment of the right lower lobe see images 97 through 103 series 1002. 2. Worsening malignant masses of the mediastinum/left subcarinal and lower lobe region. 3. Mild interval enlargement of the left hilar/subcarinal conglomerate of abnormal lymph nodes or malignant mass from 3.13 cm to 3.65 cm. Mild interval enlargement of the abnormal bilateral hilar and diffuse mediastinal lymph nodes. Mild axillary lymphadenopathy is present. Spiculated nodular components extend from the mediastinal mass to the superior segment of the left lower lobe. 4. 7.1 mm nodule is present in the anterior lateral aspect of the right lower lobe. 5. No additional nodules are seen in either lung. 6. No pleural effusion or pneumonic consolidation is seen. No pneumothorax is present. Electronically Signed: Ismael Lee MD at 15:05 EST , Service support ,
--- NOTE | 2020-05-26 11:19 | ED.DCSUM_ITS ---
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 He has been having hemoptysis. He came to the hospital today for a brain MRI. He states that prior to going into the MRI he had developed some diffuse abdominal pain. He states that he had a urgent bowel movement. While getting the MRI he states he got very sweaty nauseous and began to cough up more blood. The MRI was stopped and he was brought to the emergency department. He states he has not been able to lay flat for some time. He states that he does lay flat he starts to cough. He sees Dr. Ramirez for pulmonology. - Past Medical History (1) Hemoptysis Status: Acute (2) Mediastinal mass Status: Chronic (3) Small cell lung cancer, left lower lobe Status: Chronic (4) Hypothyroid Status: Chronic Past Medical History - Allergies and Home Meds Allergies/Adverse Reactions: Allergies No Known Allergies Allergy (Verified 05/12/20 10:47) Primary Care Physician: West Bae MD [Primary Care Provider] - Surgical History: noncontributory, - - Right fifth finger surgery, right eye surgery. Bilateral knee scopes, cholecystectomy. Smoking Status: Current every day smoker Drugs: None - Family History Maternal Family History: Family History (Last Updated 05/12/20 @ 10:53 by Katelynn Davies) Mother Colon cancer Grandmother Diabetes Heart problems Grandfather Diabetes Family History: Reports: - - Recently related to cancer Paternal Family History: Family History (Last Updated 05/12/20 @ 10:53 by Katelynn Davies) Mother Colon cancer Grandmother Diabetes Heart problems Grandfather Diabetes Family History: Reports: - - Did not know my dad Review of Systems General: Denies: Chills, Fever, Sweats Eyes: Denies: Visual changes - bilaterally, Diplopia ENT: Denies: Rhinorrhea, Sore throat Cardiovascular: Denies: Chest pain, Palpitations Respiratory: Reports: Dyspnea, Cough. Denies: Dyspnea on exertion Gastrointestinal: Reports: Abdominal pain, Nausea. Denies: Vomiting, Diarrhea, Melena, Hematochezia Genitourinary: Denies: Dysuria, Hematuria, Frequency Musculoskeletal: Denies: Back pain, Extremity Pain Skin: Denies: Rash, Wounds Neurological: Denies: Headache, Weakness, Numbness Physical Exam Vital Signs/Narrative: Vital Signs Temp Pulse Resp BP Pulse Ox 05/26/20 10:44 97.1 F L 70 18 111/73 99 General: Well nourished, Well developed, No Acute Distress Head: Normocephalic, Atraumatic Eyes: Perrl, EOMI ENT: Moist mucous membranes, No rhinorrhea Neck: Supple, Nontender Cardiovascular: Regular rate, Regular rhythm, No murmurs Respiratory: No distress, CTA bilaterally, Chest nontender Abdomen: Soft, Nondistended, Normal bowel sounds, Tender. Negative for: Guarding, Rebound tenderness Back: Nontender, Normal Inspection Extremities: Nontender, No edema Skin: Normal color, No rash Neurological: Alert, Oriented x3, Cranial nerves II-XII grossly intact, Normal Strength, Normal Sensation Psychological: Normal affect, Normal Mood Diagnostic/Tx/Re-eval Clinical Impression(s) from Imaging Studies Abdomen/Pelvis CT 05/26/20 11:18 IMPRESSION: 1. Interval appearance of a 7.1 mm nodule in the anterior lateral aspect of the right lower lobe. Mild dependent atelectasis and edema is present in the left lung base. 2. Interval development of liver metastatic lesions = Interval appearance of a 2.54 x 1.77 cm primarily hypodense rounded lesion in the posterior dome of the right lobe of the liver likely representing a metastatic lesion. 2 smaller lesions have developed in the medial and inferior aspect of the right lobe of the liver see image #30/117 series 2. These lesions measure 8.6 mm and 1.61 cm respectively. Unremarkable left lobe of the liver on the current study. 3. 1.72 cm splenic lesion likely representing metastatic implants 4. Interval appearance of a moderate size 1.88 cm hypodense lesion of the left adrenal gland suspicious for metastatic disease Electronically Signed: Ismael Lee MD at 14:44 EST , Service support , Chest CTA 05/26/20 11:18 IMPRESSION: 1. Several occlusive emboli are present in the secondary arterial branches of the right pulmonary artery supplying the superior segment of the right lower lobe see images 97 through 103 series 1002. 2. Worsening malignant masses of the mediastinum/left subcarinal and lower lobe region. 3. Mild interval enlargement of the left hilar/subcarinal conglomerate of abnormal lymph nodes or malignant mass from 3.13 cm to 3.65 cm. Mild interval enlargement of the abnormal bilateral hilar and diffuse mediastinal lymph nodes. Mild axillary lymphadenopathy is present. Spiculated nodular components extend from the mediastinal mass to the superior segment of the left lower lobe. 4. 7.1 mm nodule is present in the anterior lateral aspect of the right lower lobe. 5. No additional nodules are seen in either lung. 6. No pleural effusion or pneumonic consolidation is seen. No pneumothorax is present. Electronically Signed: Ismael Lee MD at 15:05 EST , Service support , Laboratory Last Values WBC 19.2 K/mm3 (4.4-11.0) H 05/26/20 13:07 Corrected WBC Cancelled 05/26/20 12:00 RBC 5.36 M/mm3 (4.6-6.2) 05/26/20 13:07 Hgb 15.6 g/dL (13.0-16.5) 05/26/20 13:07 Hct 47.7 % (40-54) 05/26/20 13:07 MCV 89.0 fL (80-94) 05/26/20 13:07 MCH 29.1 pg (27.0-32.0) 05/26/20 13:07 MCHC 32.7 g/dL (32-36) 05/26/20 13:07 RDW Std Deviation 45.7 fl (35.1-43.9) H 05/26/20 13:07 RDW Coeff of Liliana 14.3 % (11.6-14.6) 05/26/20 13:07 Plt Count 310 K/mm3 (150-450) 05/26/20 13:07 MPV 10.5 fl (6.2-12.0) 05/26/20 13:07 Immature Gran % (Auto) 1.300 % (0.0-0.9) H 05/26/20 13:07 Neut % (Auto) 72.3 % (47-70) H 05/26/20 13:07 Lymph % (Auto) 16.9 % (19-41) L 05/26/20 13:07 [place] % (Auto) 7.8 % (0-10) 05/26/20 13:07 Eos % (Auto) 1.1 % (0-5) 05/26/20 13:07 Baso % (Auto) 0.6 % (0-1) 05/26/20 13:07 Absolute Neuts (auto) 13.9 X10^3/uL (2.0-7.7) H 05/26/20 13:07 Absolute Lymphs (auto) 3.25 X10^3/uL (0.83-4.51) 05/26/20 13:07 Total Counted Cancelled 05/26/20 12:00 Neutrophils % (Manual) Cancelled 05/26/20 12:00 Band Neutrophils % Cancelled 05/26/20 12:00 Lymphocytes % (Manual) Cancelled 05/26/20 12:00 Monocytes % (Manual) Cancelled 05/26/20 12:00 Eosinophils % (Manual) Cancelled 05/26/20 12:00 Basophils % (Manual) Cancelled 05/26/20 12:00 Metamyelocytes % Cancelled 05/26/20 12:00 Myelocytes % Cancelled 05/26/20 12:00 Promyelocytes % Cancelled 05/26/20 12:00 Blast Cells % Cancelled 05/26/20 12:00 Plasma Cell % (Manual) Cancelled 05/26/20 12:00 Other Cells % Cancelled 05/26/20 12:00 Nucleated RBC % 0 % (0-5) 05/26/20 13:07 Nucleated RBCs/100 WBC Cancelled 05/26/20 12:00 Differential Comment Cancelled 05/26/20 12:00 Diff Path Review Cancelled 05/26/20 12:00 Hypersegmented Neuts Cancelled 05/26/20 12:00 Atypical Lymphocytes Cancelled 05/26/20 12:00 Reactive Lymphocytes Cancelled 05/26/20 12:00 Smudge Cells Cancelled 05/26/20 12:00 Toxic Granulation Cancelled 05/26/20 12:00 Toxic Vacuolation Cancelled 05/26/20 12:00 Dohle Bodies Cancelled 05/26/20 12:00 Steve Rods Cancelled 05/26/20 12:00 Platelet Estimate Cancelled 05/26/20 12:00 Plt Morphology Comment Cancelled 05/26/20 12:00 RBC Morphology Cancelled 05/26/20 12:00 RBC Morphology Cancelled 05/26/20 12:00 Polychromasia Cancelled 05/26/20 12:00 Hypochromasia Cancelled 05/26/20 12:00 Poikilocytosis Cancelled 05/26/20 12:00 Basophilic Stippling Cancelled 05/26/20 12:00 Anisocytosis Cancelled 05/26/20 12:00 Microcytosis Cancelled 05/26/20 12:00 Macrocytosis Cancelled 05/26/20 12:00 Spherocytes Cancelled 05/26/20 12:00 Sickle Cells Cancelled 05/26/20 12:00 Target Cells Cancelled 05/26/20 12:00 Tear Drop Cells Cancelled 05/26/20 12:00 Ovalocytes Cancelled 05/26/20 12:00 Stomatocytes Cancelled 05/26/20 12:00 [place] Bodies Cancelled 05/26/20 12:00 James Cells Cancelled 05/26/20 12:00 Bite Cells Cancelled 05/26/20 12:00 Crenated Cell Cancelled 05/26/20 12:00 Acanthocytes (Spur) Cancelled 05/26/20 12:00 Rouleaux Cancelled 05/26/20 12:00 Schistocytes Cancelled 05/26/20 12:00 PT 12.3 SECONDS (11.7-14.9) 05/26/20 13:07 INR 1.0 05/26/20 13:07 APTT 29.2 Seconds (24.1-36.2) 05/26/20 13:07 Sodium 138 mmol/L (136-145) 05/26/20 13:07 Potassium 4.3 mmol/L (3.5-5.1) 05/26/20 13:07 Chloride 105 mmol/L (98-107) 05/26/20 13:07 Carbon Dioxide 26.0 mmol/L (21.0-32.0) 05/26/20 13:07 Anion Gap 7 (5-15) 05/26/20 13:07 BUN 15 mg/dL (7-18) 05/26/20 13:07 Creatinine 1.00 mg/dL (0.70-1.30) 05/26/20 13:07 Estim Creat Clear Calc 80.52 ml/min 05/26/20 13:07 Est GFR (MDRD) Af Amer 99 mL/min (>60) 05/26/20 13:07 Est GFR (MDRD) Non-Af 82 mL/min (>60) 05/26/20 13:07 BUN/Creatinine Ratio 15.0 RATIO (10-20) 05/26/20 13:07 Glucose 94 mg/dL (74-106) 05/26/20 13:07 Calcium 9.0 mg/dL (8.5-10.1) 05/26/20 13:07 Total Bilirubin 0.40 mg/dL (0.20-1.00) 05/26/20 13:07 AST 100 U/L (15-37) H 05/26/20 13:07 ALT 64 U/L (16-61) H 05/26/20 13:07 Alkaline Phosphatase 116 U/L (45-117) 05/26/20 13:07 Total Protein 7.9 g/dL (6.4-8.2) 05/26/20 13:07 Albumin 3.5 g/dL (3.2-5.0) 05/26/20 13:07 Globulin 4.4 g/dL (2.2-4.2) H 05/26/20 13:07 Albumin/Globulin Ratio 0.8 RATIO (0.9-2.4) L 05/26/20 13:07 Lipase 947 U/L (73-393) H 05/26/20 13:07 - Medical Decision Making Basic labs were obtained. CT of the chest abdomen pelvis demonstrated metastatic lesions to liver spleen adrenal glands. Worsening tumor burden in the chest. Also noted were small pulmonary emboli. I reviewed his MRI that he had done this morning that also shows metastatic lesions to the brain. I spoke with Jim Cohen, and Marianna. I am hesitant to put him on anticoagulation given the hemoptysis and the description of his bronchoscopy. Especially in the light that he is hemodynamically stable at this point. I spoke with the patient he is entertaining the idea of hospice but he is also very concerned about his . I think at this point plan will be to admit him. We can get the [facility] to see him and offer their opinions. ED Disposition - Plan for ED Patient: Disposition: Acute Care [facility] Diagnosis: Hemoptysis, Small cell lung cancer, left lower lobe, Metastatic small cell carcinoma to liver, Pulmonary embolism, Brain metastasis Referrals: West Bae MD [Primary Care Provider] -
[2020-05-26] MEDS: 0.9% Normal Saline 1,000 ML 1000 ML IV (11:57)
[2020-05-26] MEDS: Ondansetron 4 MG/2 ML Vial IV ×2 (11:58→17:53)
[2020-05-26] MEDS: Morphine 4 MG/ML Syringe IV (11:58)
[2020-05-26] MEDS: proMETHazine 25 MG/ML Syringe 12.5 MG IV (13:10)
[2020-05-26 13:14] LABS: Absolute Lymphocyte Count 3.25 X10^3/uL (0.83-4.51); Absolute Neutrophil Count 13.9 X10^3/uL (2.0-7.7); Basophil# 0.11 X10^3/uL; Basophil% 0.6 % (0-1); Eosinophil# 0.21 X10^3/uL; Eosinophils% 1.1 % (0-5); Hematocrit 47.7 % (40-54); Hemoglobin 15.6 g/dL (13.0-16.5); Lymphocyte # 3.25 X10^3/ul (4.0); Lymphocyte % 16.9 % (19-41); Mean Corp Hgb Conc 32.7 g/dL (32-36); Mean Corpuscular Hgb 29.1 pg (27.0-32.0); Mean Platelet Vol. 10.5 fl (6.2-12.0); Monocyte% 7.8 % (0-10); NRBC Flagged by Analyzer 0 % (0-5); Neutrophil # 13.89 X10^3/uL (2.7-7.7); Neutrophil % 72.3 % (47-70); Platelet Count 310 K/mm3 (150-450); RBC Distribution Width CV 14.3 % (11.6-14.6); RBC Distribution Width SD 45.7 fl (35.1-43.9); Red Blood Count 5.36 M/mm3 (4.6-6.2); White Blood Count 19.2 K/mm3 (4.4-11.0)
[2020-05-26 13:23] LABS: Partial Thromboplast Time 29.2 Seconds (24.1-36.2); Prothrombin Time (Protime)PT. 12.3 SECONDS (11.7-14.9)
[2020-05-26 13:32] LABS: ALB/GLOB Ratio 0.8 RATIO (0.9-2.4); AST(SGOT) 100 U/L (15-37); Alanine Aminotransfer ALT/SGPT 64 U/L (16-61); Albumin, Serum 3.5 g/dL (3.2-5.0); Alkaline Phosphatase 116 U/L (45-117); Anion Gap 7 (5-15); BUN 15 mg/dL (7-18); Chloride 105 mmol/L (98-107); EST Glomerular Filtration Rate 82 mL/min (>60); Est Glom Filt Rate - Afr Amer 99 mL/min (>60); Estimated Creatinine Clearance 80.52 ml/min; Globulin 4.4 g/dL (2.2-4.2); Glucose 94 mg/dL (74-106); Lipase 947 U/L (73-393); Potassium 4.3 mmol/L (3.5-5.1); Protein, Total 7.9 g/dL (6.4-8.2); Sodium Level 138 mmol/L (136-145)
[2020-05-26] MEDS: dexAMETHasone 10 MG/ML Vial IV (16:43)
--- NOTE | 2020-05-26 16:56 | HP.PCM_ITS ---
Problem List (1) Near syncope Status: Acute (2) Small cell lung cancer, left lower lobe Status: Chronic (3) Metastatic small cell carcinoma to liver Status: Chronic (4) Pulmonary embolism Status: Acute (5) Brain metastasis Status: Acute (6) Hypothyroid Status: Chronic Qualifiers: (7) Hemoptysis Status: Acute (8) Mediastinal mass Status: Chronic History of Present Illness Date of Admission: 05/26/20 Chief Complaint: hempotysis. near syncope The patient is a 59 year old M with a recently diagnosed small cell lung cancer was having an MRI of his brain today where he felt the need to defecate became sweaty and had a near syncopal episode. Patient was brought to the hospital. MRI results showed 6 metastatic lesions. Patient also underwent a CAT scan in the emergency room. CAT scan of the chest shows several occlusive emboli in the second arterial branches of the right pulmonary artery. Worsening malignant masses of the mediastinum/left subcarinal and lower lobe region. Interval enlargement of the left hilar and subcarinal conglomerate abnormal lymph nodes from 3.1 cm to 3.65 cm. 7.1 nodule noted in the anterior lateral aspect of the right lower lobe. CT of the abdomen pelvis showed interval appearance of the nodule in the anterior lateral aspect of the right lower lobe. Interval development of liver metastatic lesions, splenic lesion representing metastatic implants and interval appearance of a lesion in the left adrenal gland suspicious for metastatic disease. Patient informed the emergency room doctor that he is want to proceed with hospice. I arrived in discussed the findings with the patient and his . P is still leaning towards hospice but has not committed to that just yet. [] Past Medical History Past Medical History (Chronic Problems): Chronic Problems (Last Updated 05/12/20 @ 10:48 by Katelynn Davies) Small cell lung cancer, left lower lobe (Chronic) Metastatic small cell carcinoma to liver (Chronic) Hypothyroid (Chronic) Mediastinal mass (Chronic) Medical History: Medical History (Last Updated 05/26/20 @ 17:[address] Bon Cabral DO) Bronchitis COPD Hisory of lung mass Small cell lung cancer C34.90 Allergies No Known Allergies Allergy (Verified 05/12/20 10:47) Home Medications: Ambulatory Orders Medication Instructions Recorded Levothyroxine Sodium 112 mcg PO DAILY 04/26/20 Codeine Phosphate/Guaifenesin 5 - 10 ml PO TID PRN PRN 05/26/20 [Codeine-Guaifen 10-100 mg/5 ml] Surgical History: Surgical History (Last Reviewed 05/26/20 @ 17:[address] Bon Cabral DO) History of Tonsillectomy History of cholecystectomy History of finger surgery History of lung biopsy Z98.890 history of bilateral knee surgery Surgical History: noncontributory, - - Right fifth finger surgery, right eye surgery. Bilateral knee scopes, cholecystectomy. Psychiatric History: No pertinent psych hx Smoking Status: Current every day smoker Tobacco Use: Cigarettes Drugs: None - *Family History Maternal Family History: Family History (Last Reviewed 05/26/20 @ 17:[address] Bon Cabral DO) Mother Colon cancer Grandmother Diabetes Heart problems Grandfather Diabetes History Items: - - Recently related to cancer Paternal Family History: Family History (Last Reviewed 05/26/20 @ 17:[address] Bon Cabral DO) Mother Colon cancer Grandmother Diabetes Heart problems Grandfather Diabetes History Items: - - Did not know my dad Review of Systems Constitutional: Reports: Anorexia, Malaise, Weakness. Denies: Chills, Fever Eyes: Denies: Blurred vision, Double vision HEENT: Denies: Head Aches, Sinus Congestion, Sinus Drainage Cardiovascular: Denies: Chest Pain, Palpitations Respiratory: Reports: Cough, Hemoptysis Gastrointestinal: Reports: Nausea. Denies: Abdominal Pain, Vomiting Genitourinary: Denies: Dysuria Musculoskeletal: Denies: Joint Pain, Joint Tenderness Skin: Denies: Rash, Wounds Comment: All review of systems were negative except as mentioned above in the history of present illness and the other review of systems. VTE Information - Inpt Only VTE Present on Admission: Yes VTE Mechan Device Prophylaxis: SCD's VTE Pharm Prophylaxis ordered?: No Reason prophylaxis not ordered:: Medical Contraindication Patient Problems: Active and Suspected Problems (Last Updated 05/12/20 @ 10:48 by Katelynn Davies) Pulmonary embolism (Acute) Brain metastasis (Acute) Hemoptysis (Acute) - Physical Exam Vitals/I&O's: Vital Signs Temp Pulse Resp BP Pulse Ox 36.6 C 57 L 18 147/89 H 95 05/26/20 16:39 05/26/20 16:39 05/26/20 16:39 05/26/20 16:39 05/26/20 16:39 Oxygen Delivery Method Room Air Weight: 76.3 kg Body Mass Index (BMI) 24.8 Intake and Output for Last 24 Hours 05/24/20 05/25/20 05/26/20 23:59 23:59 23:59 Intake Total 1000 / 1000 Balance 1000 / 1000 General: Alert, - - Listless. Afebrile. No respiratory distress. No conversational dyspnea. HEENT: Atraumatic, Normocephalic Oral: Moist Mucosa, No Gingival or Mucosal Lesions/ Ulcerations Neck: No Nodes, Thyroid Normal Size and Texture Lungs: Clear to auscultation, Normal air movement, No rhonchi, No wheeze, No rales Cardiovascular: Regular rate, Regular Rhythm, Normal S1, Normal S2, No murmurs Abdomen: Bowel Sounds Present, Soft, Non Tender, Non-Distended Extremities: No edema, No Calf Tenderness Skin: No rashes, No breakdown Psych/Mental Status: Appropriate, Flat Affect Laboratory Results 05/26/20 12:00: WBC Cancelled, Corrected WBC Cancelled, RBC Cancelled, Hgb Cancelled, Hct Cancelled, MCV Cancelled, MCH Cancelled, MCHC Cancelled, RDW Std Deviation Cancelled, RDW Coeff of Liliana Cancelled, Plt Count Cancelled, MPV Cancelled, Immature Gran % (Auto) Cancelled, Neut % (Auto) Cancelled, Lymph % (Auto) Cancelled, [place] % (Auto) Cancelled, Eos % (Auto) Cancelled, Baso % (Auto) Cancelled, Absolute Neuts (auto) Cancelled, Absolute Lymphs (auto) Cancelled, Total Counted Cancelled, Neutrophils % (Manual) Cancelled, Band Neutrophils % Cancelled, Lymphocytes % (Manual) Cancelled, Monocytes % (Manual) Cancelled, Eosinophils % (Manual) Cancelled, Basophils % (Manual) Cancelled, Metamyelocytes % Cancelled, Myelocytes % Cancelled, Promyelocytes % Cancelled, Blast Cells % Cancelled, Plasma Cell % (Manual) Cancelled, Other Cells % Cancelled, Nucleated RBC % Cancelled, Nucleated RBCs/100 WBC Cancelled, Differential Comment Cancelled, Diff Path Review Cancelled, Hypersegmented Neuts Cancelled, Atypical Lymphocytes Cancelled, Reactive Lymphocytes Cancelled, Smudge Cells Cancelled, Toxic Granulation Cancelled, Toxic Vacuolation Cancelled, Dohle Bodies Cancelled, Steve Rods Cancelled, Platelet Estimate Cancelled, Plt Morphology Comment Cancelled, RBC Morphology Cancelled, Polychromasia Cancelled, Hypochromasia Cancelled, Poikilocytosis Cancelled, Basophilic Stippling Cancelled, Anisocytosis Cancelled, Microcytosis Cancelled, Macrocytosis Cancelled, Spherocytes Cancelled, Sickle Cells Cancelled, Target Cells Cancelled, Tear Drop Cells Cancelled, Ovalocytes Cancelled, Stomatocytes Cancelled, Yusuf-Stem Bodies Cancelled, [place] Cells Cancelled, Bite Cells Cancelled, Crenated Cell Cancelled, Acanthocytes (Spur) Cancelled, Rouleaux Cancelled, Schistocytes Cancelled 05/26/20 12:00: PT Cancelled, INR Cancelled, APTT Cancelled 05/26/20 12:00: Sodium Cancelled, Potassium Cancelled, Chloride Cancelled, Carbon Dioxide Cancelled, Anion Gap Cancelled, BUN Cancelled, Creatinine Cancelled, Estim Creat Clear Calc Cancelled, Est GFR (MDRD) Af Amer Cancelled, Est GFR (MDRD) Non-Af Cancelled, BUN/Creatinine Ratio Cancelled, Glucose Ca ncelled, Calcium Cancelled, Total Bilirubin Cancelled, AST Cancelled, ALT Cancelled, Alkaline Phosphatase Cancelled, Total Protein Cancelled, Albumin Cancelled, Globulin Cancelled, Albumin/Globulin Ratio Cancelled, Lipase Cancelled 05/26/20 13:07: WBC 19.2 H, RBC 5.36, Hgb 15.6, Hct 47.7, MCV 89.0, MCH 29.1, MCHC 32.7, RDW Std Deviation 45.7 H, RDW Coeff of Liliana 14.3, Plt Count 310, MPV 10.5, Immature Gran % (Auto) 1.300 H, Neut % (Auto) 72.3 H, Lymph % (Auto) 16.9 L, [place] % (Auto) 7.8, Eos % (Auto) 1.1, Baso % (Auto) 0.6, Absolute Neuts (auto) 13.9 H, Absolute Lymphs (auto) 3.25, Nucleated RBC % 0 05/26/20 13:07: PT 12.3, INR 1.0, APTT 29.2 05/26/20 13:07: Sodium 138, Potassium 4.3, Chloride 105, Carbon Dioxide 26.0, Anion Gap 7, BUN 15, Creatinine 1.00, Estim Creat Clear Calc 80.52, Est GFR (MDRD) Af Amer 99, Est GFR (MDRD) Non-Af 82, BUN/Creatinine Ratio 15.0, Glucose 94, Calcium 9.0, Total Bilirubin 0.40, AST 100 H, ALT 64 H, Alkaline Phosphatase 116, Total Protein 7.9, Albumin 3.5, Globulin 4.4 H, Albumin/Globulin Ratio 0.8 L, Lipase 947 H Clinical Impression(s) from Imaging Studies Abdomen/Pelvis CT 05/26/20 11:18 IMPRESSION: 1. Interval appearance of a 7.1 mm nodule in the anterior lateral aspect of the right lower lobe. Mild dependent atelectasis and edema is present in the left lung base. 2. Interval development of liver metastatic lesions = Interval appearance of a 2.54 x 1.77 cm primarily hypodense rounded lesion in the posterior dome of the right lobe of the liver likely representing a metastatic lesion. 2 smaller lesions have developed in the medial and inferior aspect of the right lobe of the liver see image #30/117 series 2. These lesions measure 8.6 mm and 1.61 cm respectively. Unremarkable left lobe of the liver on the current study. 3. 1.72 cm splenic lesion likely representing metastatic implants 4. Interval appearance of a moderate size 1.88 cm hypodense lesion of the left adrenal gland suspicious for metastatic disease Electronically Signed: Ismael Lee MD at 14:44 EST , Service support , Chest CTA 05/26/20 11:18 IMPRESSION: 1. Several occlusive emboli are present in the secondary arterial branches of the right pulmonary artery supplying the superior segment of the right lower lobe see images 97 through 103 series 1002. 2. Worsening malignant masses of the mediastinum/left subcarinal and lower lobe region. 3. Mild interval enlargement of the left hilar/subcarinal conglomerate of abnormal lymph nodes or malignant mass from 3.13 cm to 3.65 cm. Mild interval enlargement of the abnormal bilateral hilar and diffuse mediastinal lymph nodes. Mild axillary lymphadenopathy is present. Spiculated nodular components extend from the mediastinal mass to the superior segment of the left lower lobe. 4. 7.1 mm nodule is present in the anterior lateral aspect of the right lower lobe. 5. No additional nodules are seen in either lung. 6. No pleural effusion or pneumonic consolidation is seen. No pneumothorax is present. Electronically Signed: Ismael Lee MD at 15:05 EST , Service support , MRI brain IMPRESSION: 1. 6 metastatic lesions involving the right occipital lobe, left cerebellar vermis and junction, and left temporal lobe. 2. No acute infarct. Assessment/Plan All Active Problems (Last Updated 05/12/20 @ 10:48 by Katelynn Davies) Pulmonary embolism (Acute) Brain metastasis (Acute) Near syncope (Acute) Hemoptysis (Acute) 1. Hemoptysis: Secondary to the known small cell lung cancer. Bronchoscopy report reviewed and did note friable mucosa in the left mainstem bronchus. Patient not actively having hemoptysis at this time. And since patient is leaning towards hospice will hold off on a pulmonary consultation at this time. Discussed with Dr. Fernandez and he is recommending a codeine cough syrup to help with coughing fits. 2. Near syncope: Likely wrote bowel movement. Dexamethasone was recommended by oncology. Note noted vasogenic edema, however. Patient did receive a dexamethasone 10 mg in the ER and for now will continue with 4 mg 4 times daily. That can likely be de-escalate it to twice daily. 3. Stage IV small cell lung cancer: Patient with liver, spleen, adrenal and brain mets. Patient is expressed that he is not interested in pursuing with treatment. I did discuss with Dr. Fernandez, who would not be seeing the patient in the hospital but would follow-up with the patient on Friday if that is what the patient wishes. Overall his prognosis is extremely poor. 4. Pulmonary emboli: Likely cancer induced. Given the hemoptysis, no anticoagulation at this time. If hemoptysis does not resolve may consider adding anticoagulation or the other alternative would be an IVC filter. Being that the patient is leaning more towards hospice would not pursue with an IVC filter at this time. 5. VTE prophylaxis with SCDs as chemical prophylaxis contraindicated with hemoptysis. 6. Advanced care planning: Spent an additional 20 is discussing with the patient and his about treatment options and hospice. Will consult hospice to provide him further information. Made them aware that this being with hospice does not obligate them to doing that. In regards to CODE STATUS, patient wishes to be DNR Comfort Care arrest no intubation. 7. Prognosis: Poor. Inpatient E&M: 55553 Init Hosp L2 Procedures: 27211 Advncd Care Plan 30 Min
[2020-05-26] MEDS: 0.9% Saline Lock 10 ML Syringe IV ×2 (17:54→21:24)
[2020-05-26] MEDS: proCHLORPERazine 10 MG/2 ML Vial 5 MG IV (18:48)
[2020-05-26] MEDS: proMETHazine 25 MG Tablet PO (21:24)
[2020-05-27] MEDS: 0.9% Saline Lock 10 ML Syringe IV (01:02)
[2020-05-27] MEDS: proCHLORPERazine 10 MG/2 ML Vial 5 MG IV (01:02)
[2020-05-27] MEDS: dexAMETHasone 4 MG Tablet PO ×3 (01:02→11:37)
[2020-05-27 01:05] VITALS: BP 128/81; PULSE 61; RESP 18; TEMP 37.1; O2SAT 95
[2020-05-27 06:05] LABS: Absolute Lymphocyte Count 1.91 X10^3/uL (0.83-4.51); Absolute Neutrophil Count 17.5 X10^3/uL (2.0-7.7); Basophil# 0.03 X10^3/uL; Basophil% 0.1 % (0-1); Hematocrit 48.1 % (40-54); Hemoglobin 15.7 g/dL (13.0-16.5); Lymphocyte # 1.91 X10^3/ul (4.0); Lymphocyte % 9.2 % (19-41); Mean Corp Hgb Conc 32.6 g/dL (32-36); Mean Corpuscular Hgb 28.4 pg (27.0-32.0); Mean Platelet Vol. 10.6 fl (6.2-12.0); Monocyte# 1.19 X10^3/uL; Monocyte% 5.7 % (0-10); NRBC Flagged by Analyzer 0 % (0-5); Neutrophil # 17.52 X10^3/uL (2.7-7.7); Neutrophil % 84.2 % (47-70); Platelet Count 332 K/mm3 (150-450); Red Blood Count 5.53 M/mm3 (4.6-6.2); White Blood Count 20.8 K/mm3 (4.4-11.0)
[2020-05-27 06:20] VITALS: BP 139/68; PULSE 66; RESP 18; TEMP 36.8; O2SAT 98
--- NOTE | 2020-05-27 10:00 | DCINST_ITS ---
- Discharge Diagnoses Current Active Problems: Current Active and Chronic Problems (Last Updated 05/26/20 @ 17:[address] Bon Cabral, DO) 1. Hemoptysis, Secondary to the known small cell lung cancer 2. Near syncope, possibly vasovagal, possibly associated with metastatic lesions to the brain 3. Stage IV small cell lung cancer, metastatic to liver, spleen, adrenal and brain 4. Acute Pulmonary emboli, unable to be anticoagulated secondary to #1 5. Chronic COPD/bronchitis 6. Tobacco use You will use the following diet at home:: Regular Your food should be the consistency of: Regular Your liquids should be the consistency of: Regular/Thin Discharge Activity: - - Activity per your discretion. May resume sexual activity in: No Restrictions Call your doctor if you observe: - - Contact Hospice team if any symptoms including nausea, emesis, ongoing hemoptysis, shortness of breath, uncontrolled pain. Instructions: What Is Hospice?, Starting Hospice, Hospice: The Importance of Managing Pain, Hospice: Understanding and Caring for Dyspnea, Hospice: Understanding and Caring for Delirium, Hospice: As Nears Allergies/Adverse Reactions: Allergies No Known Allergies Allergy (Verified 05/12/20 10:47) Medications to take at Discharge Levothyroxine Sodium 112 mcg PO DAILY 04/26/20 Codeine Phosphate/Guaifenesin [Codeine-Guaifen 10-100 mg/5 ml] 5 - 10 ml PO TID PRN PRN 05/26/20 Benzonatate [Tessalon Perle] 100 mg PO TID PRN PRN #90 cap 05/27/20 Lorazepam Intensol [Ativan Intensol] 1 mg PO Q4H PRN PRN 5 Days #8 oz 05/27/20 morphine solution (IR) [Roxanol (IR oral solution)] 5 mg PO Q4H PRN PRN 5 Days #8 oz 05/27/20 proMETHazine tablet [Phenergan tablet] 25 mg PO Q4H PRN PRN #60 tab 05/27/20 The following prescriptions were given: Lorazepam Intensol [Ativan Intensol] 1 mg PO Q4H PRN PRN 5 Days #8 oz PRN Reason: Dyspnea, anxiety Transmission Status: Received by [facility] proMETHazine tablet [Phenergan tablet] 25 mg PO Q4H PRN PRN #60 tab PRN Reason: NAUSEA/VOMITING Transmission Status: Pending to [facility] morphine solution (IR) [Roxanol (IR oral solution)] 5 mg PO Q4H PRN PRN 5 Days #8 oz PRN Reason: Pain, dyspnea Transmission Status: Received by [facility] Benzonatate [Tessalon Perle] 100 mg PO TID PRN PRN #90 cap PRN Reason: Non-Productive Cough Transmission Status: Pending to [facility] Primary Care Physician: West Bae MD [Primary Care Provider] - Please follow up with your Primary Care Physician in: If transitioning to hospice may transfer all care to hospice. Test Results: Test results from this visit will be discussed in further detail at your follow- up appointment, if applicable. Please Follow Up With: [facility] When: Case management is setting up home hospice with evaluation Friday. Proposed Discharge Date: 05/27/20
--- NOTE | 2020-05-27 10:09 | PCM.DC.SUM ---
Discharge Date and Diagnosis - Problem List Patient Problems: Active and Suspected Problems (Last Updated 05/26/20 @ 17:[address] Bon Cabral DO) Hemoptysis (Acute) Pulmonary embolism (Acute) Brain metastasis (Acute) Near syncope (Acute) Date of Admission: 05/26/20 Date of Discharge: 05/27/20 - Primary Discharge Diagnosis Acute Problems: Active Problems (Last Updated 05/26/20 @ 17:[address] Bon Cabral DO) 1. Hemoptysis, Secondary to the known small cell lung cancer 2. Near syncope, possibly vasovagal, possibly associated with metastatic lesions to the brain 3. Stage IV small cell lung cancer, metastatic to liver, spleen, adrenal and brain 4. Acute Pulmonary emboli, unable to be anticoagulated secondary to #1 5. Chronic COPD/bronchitis 6. Tobacco use - Secondary Discharge Diagnosis Chronic Problems: Chronic Problems (Last Updated 05/26/20 @ 17:[address] Bon Cabral DO) Hypothyroid (Chronic) Mediastinal mass (Chronic) Small cell lung cancer, left lower lobe (Chronic) Metastatic small cell carcinoma to liver (Chronic) Hospital Course and Treatment Operations: None Procedures: EKG Summary of Care Provided: The patient is a 59 y/o M w/ PMHx: Hypothyroidism, Tobacco use, Chronic COPD/Bronchitis, Stage IV small cell lung cancer, metastatic to liver, spleen, adrenal and brain who presents to the [facility] ED on 05/26/20 secondary to history of near syncopal event following MRI of his brain noted to become diaphoretic, sensation of need to defecate with near syncopal sensation. Patient was transitioned to the ED for evaluation underwent CT PA demonstrating several occlusive emboli in the second arterial branches of the right pulmonary artery with worsening appearance of lung masses of the mediastinum/left subcarinal and lower lobe region as well as interval enlargement of the left hilar and subcarinal conglomerate abnormal lymph nodes and nodules in the right lower lobe with additionally CT abdomen and pelvis with development of liver metastatic lesions, splenic lesions as well as a lesion in the left adrenal gland suspicious for metastatic disease. Patient was admitted to medical surgical floor with concurrent history of ongoing hemoptysis associated with his metastatic cancer in the setting of acute pulmonary emboli. ED physician did discuss case with patient's oncologist, Dr. Chris Ramirez who recommended that any anticoagulation be deferred given ongoing hemoptysis. Following admission discussed patient's status with both him and his spouse and they requested discharge to home with home hospice with medication for dyspnea and pain as well as Marinol for poor appetite. Discussed at length with case management and planned set up for hospice on Friday. Patient preferred discharge to home with his spouse and family and understood that hospice evaluation would not occur until Friday. Prior to discharge patient did sign DNR form and copy was sent to the hospice facility in addition to a copy placed in the patient's care. DAY OF DISCHARGE PROGRESS NOTE: Subjective: Patient without acute event overnight per self and nursing report. Patient remains fatigued, weak, chronic ongoing pain associated with his metastatic disease, poor appetite. Patient notes preference strongly for discharge to home with home hospice and understands that he will shortly pass and requests that he do so surrounded by his family not in the hospital setting. Patient amenable to discharge with planned hospice set up Friday with planned Roxanol, Intensol, Marinol in addition to continued twice daily regimen of steroid. Patient denies fever, chills, emesis. With chronic dyspnea, chest pain, abdominal discomfort. Patient will be discharged with follow-up with hospice follow-up recommendations only given hospice transition. Objective: T 98.5, heart 92, BP 123/87, respiratory rate 18, 94% on room air. Physical Examination: General: awake, alert, oriented x 3 and cooperative, seated upright in the medical surgical bed, fatigued, uncomfortable appearing. Skin: Pale color, mildly decreased turgor, no icterus, no cyanosis. HEENT: AT/NC, EOMI, PERRLA, dry MM. Lungs: Diminished breath sounds throughout, greater bases, decreased effort, occasional end expiratory wheeze noted, no obvious rales or rhonchi. Heart: Regular rate and rhythm; no gallop, rub audible. Abdomen: soft, diffuse generalized discomfort with palpation, difficult to assess distention given pain with evaluation, mildly hyperactive BS. Extremities: no cyanosis, clubbing, or edema. Neurological: patient awake, alert, oriented as noted; cognitive function appears intact upon questioning, but very fatigued; pupils equally reactive to light and accomodation; cranial nerves II-XII grossly normal, moving all 4 extremities, strength moderately to severely global decreased. Psychiatric: affect appears fatigued, resigned, no acute evidence of depressive or anxiety feelings. Assessment and Plan: Please see hospital summary above. Patient Problems: Active and Suspected Problems (Last Updated 05/26/20 @ 17:[address] Bon Cabral, DO) Hemoptysis (Acute) Pulmonary embolism (Acute) Brain metastasis (Acute) Near syncope (Acute) - Physical Exam Vitals/I&O's: Vital Signs Temp Pulse Resp BP Pulse Ox 98.2 F 66 18 139/68 H 98 05/27/20 06:20 05/27/20 06:20 05/27/20 06:20 05/27/20 06:20 05/27/20 06:20 Oxygen Delivery Method Room Air Weight: 173 lb 15.115 oz Body Mass Index (BMI) 25.7 Intake and Output for Last 24 Hours 05/25/20 05/26/20 05/27/20 23:59 23:59 23:59 Intake Total 1000 / 1050 550 / 550 Output Total 300 / 300 Balance 1000 / 750 250 / 250 Laboratory Results 05/26/20 12:00: WBC Cancelled, Corrected WBC Cancelled, RBC Cancelled, Hgb Cancelled, Hct Cancelled, MCV Cancelled, MCH Cancelled, MCHC Cancelled, RDW Std Deviation Cancelled, RDW Coeff of Liliana Cancelled, Plt Count Cancelled, MPV Cancelled, Immature Gran % (Auto) Cancelled, Neut % (Auto) Cancelled, Lymph % (Auto) Cancelled, Eaton % (Auto) Cancelled, Eos % (Auto) Cancelled, Baso % (Auto) Cancelled, Absolute Neuts (auto) Cancelled, Absolute Lymphs (auto) Cancelled, Total Counted Cancelled, Neutrophils % (Manual) Cancelled, Band Neutrophils % Cancelled, Lymphocytes % (Manual) Cancelled, Monocytes % (Manual) Cancelled, Eosinophils % (Manual) Cancelled, Basophils % (Manual) Cancelled, Metamyelocytes % Cancelled, Myelocytes % Cancelled, Promyelocytes % Cancelled, Blast Cells % Cancelled, Plasma Cell % (Manual) Cancelled, Other Cells % Cancelled, Nucleated RBC % Cancelled, Nucleated RBCs/100 WBC Cancelled, Differential Comment Cancelled, Diff Path Review Cancelled, Hypersegmented Neuts Cancelled, Atypical Lymphocytes Cancelled, Reactive Lymphocytes Cancelled, Smudge Cells Cancelled, Toxic Granulation Cancelled, Toxic Vacuolation Cancelled, Dohle Bodies Cancelled, Steve Rods Cancelled, Platelet Estimate Cancelled, Plt Morphology Comment Cancelled, RBC Morphology Cancelled, Polychromasia Cancelled, Hypochromasia Cancelled, Poikilocytosis Cancelled, Basophilic Stippling Cancelled, Anisocytosis Cancelled, Microcytosis Cancelled, Macrocytosis Cancelled, Spherocytes Cancelled, Sickle Cells Cancelled, Target Cells Cancelled, Tear Drop Cells Cancelled, Ovalocytes Cancelled, Stomatocytes Cancelled, [place] Bodies Cancelled, [place] Cells Cancelled, Bite Cells Cancelled, Crenated Cell Cancelled, Acanthocytes (Spur) Cancelled, Rouleaux Cancelled, Schistocytes Cancelled 05/26/20 12:00: PT Cancelled, INR Cancelled, APTT Cancelled 05/26/20 12:00: Sodium Cancelled, Potassium Cancelled, Chloride Cancelled, Carbon Dioxide Cancelled, Anion Gap Cancelled, BUN Cancelled, Creatinine Cancelled, Estim Creat Clear Calc Cancelled, Est GFR (MDRD) Af Amer Cancelled, Est GFR (MDRD) Non-Af Cancelled, BUN/Creatinine Ratio Cancelled, Glucose Cancelled, Calcium Cancelled, Total Bilirubin Cancelled, AST Cancelled, ALT Cancelled, Alkaline Phosphatase Cancelled, Total Protein Cancelled, Albumin Cancelled, Globulin Cancelled, Albumin/Globulin Ratio Cancelled, Lipase Cancelled 05/26/20 13:07: WBC 19.2 H, RBC 5.36, Hgb 15.6, Hct 47.7, MCV 89.0, MCH 29.1, MCHC 32.7, RDW Std Deviation 45.7 H, RDW Coeff of Liliana 14.3, Plt Count 310, MPV 10.5, Immature Gran % (Auto) 1.300 H, Neut % (Auto) 72.3 H, Lymph % (Auto) 16.9 L, Eaton % (Auto) 7.8, Eos % (Auto) 1.1, Baso % (Auto) 0.6, Absolute Neuts (auto) 13.9 H, Absolute Lymphs (auto) 3.25, Nucleated RBC % 0 05/26/20 13:07: PT 12.3, INR 1.0, APTT 29.2 05/26/20 13:07: Sodium 138, Potassium 4.3, Chloride 105, Carbon Dioxide 26.0, Anion Gap 7, BUN 15, Creatinine 1.00, Estim Creat Clear Calc 80.52, Est GFR (MDRD) Af Amer 99, Est GFR (MDRD) Non-Af 82, BUN/Creatinine Ratio 15.0, Glucose 94, Calcium 9.0, Total Bilirubin 0.40, AST 100 H, ALT 64 H, Alkaline Phosphatase 116, Total Protein 7.9, Albumin 3.5, Globulin 4.4 H, Albumin/Globulin Ratio 0.8 L, Lipase 947 H 05/27/20 05:30: WBC 20.8 H, RBC 5.53, Hgb 15.7, Hct 48.1, MCV 87.0, MCH 28.4, MCHC 32.6, RDW Std Deviation 45.0 H, RDW Coeff of Liliana 14.0, Plt Count 332, MPV 10.6, Immature Gran % (Auto) 0.800, Neut % (Auto) 84.2 H, Lymph % (Auto) 9.2 L, Eaton % (Auto) 5.7, Eos % (Auto) 0.0, Baso % (Auto) 0.1, Absolute Neuts (auto) 17.5 H, Absolute Lymphs (auto) 1.91, Nucleated RBC % 0 Current Medications Acetaminophen (Acetaminophen 325 Mg Tablet) 650 mg PO Q6H PRN PRN PRN Reason: Pain Score 1-10/Temp > 100.7 F Benzonatate (Benzonatate 100 Mg Capsule) 100 mg PO TID PRN PRN PRN Reason: Non-Productive Cough Dexamethasone (Dexamethasone 4 Mg Tablet) 4 mg PO Q6 JAQUELINE Last Admin: 05/27/20 06:22 Dose: 4 mg Documented by: Guaifenesin (Guaifenesin 10 Ml Udc (200mg/10ml)) 10 - 20 ml PO Q4H PRN PRN PRN Reason: Productive Cough Loperamide HCl (Loperamide 2 Mg Capsule) 2 mg PO UD PRN PRN Reason: After each liquid stool Lorazepam (Lorazepam 0.5 Mg Tablet) 0.5 - 1 mg SL/PO Q3H PRN PRN PRN Reason: Restlessness/Anxiety Melatonin (Melatonin 3 Mg Tablet) 3 mg PO QHS PRN PRN PRN Reason: INSOMNIA Morphine Sulfate (Morphine 4 Mg/Ml Syringe) 4 mg IV Q3H PRN PRN PRN Reason: Pain Score 1-10 Ondansetron HCl (Ondansetron 4 Mg/2 Ml Vial) 4 mg IV Q8H PRN PRN PRN Reason: NAUSEA/VOMITING Last Admin: 05/26/20 17:53 Dose: 4 mg Documented by: Oxycodone HCl (Oxycodone 5 Mg Tablet) 5 mg PO Q4H PRN PRN PRN Reason: Pain Score 4-5 Oxycodone HCl (Oxycodone 5 Mg Tablet) 10 mg PO Q4H PRN PRN PRN Reason: Pain Score 6-10 Prochlorperazine Edisylate (Prochlorperazine 10 Mg/2 Ml Vial) 5 mg IV Q4H PRN PRN PRN Reason: Breakthrough nausea/vomiting Last Admin: 05/27/20 01:02 Dose: 5 mg Documented by: Promethazine HCl (Promethazine 25 Mg Tablet) 25 mg PO Q6H PRN PRN PRN Reason: NAUSEA/VOMITING Last Admin: 05/26/20 21:24 Dose: 25 mg Documented by: Sodium Chloride (0.9% Saline Lock 10 Ml Syringe) 10 - 40 ml IV UD PRN PRN Reason: SALINE FLUSH Last Admin: 05/27/20 01:02 Dose: 10 ml Documented by: Discharge Activity: - - Activity per your discretion. May resume sexual activity in: No Restrictions Call your doctor if you observe: - - Contact Hospice team if any symptoms including nausea, emesis, ongoing hemoptysis, shortness of breath, uncontrolled pain. Home Medications: Medications to take at Discharge Levothyroxine Sodium 112 mcg PO DAILY 04/26/20 Codeine Phosphate/Guaifenesin [Codeine-Guaifen 10-100 mg/5 ml] 5 - 10 ml PO TID PRN PRN 05/26/20 Benzonatate [Tessalon Perle] 100 mg PO TID PRN PRN #90 cap 05/27/20 Dexamethasone [Decadron] 4 mg PO BIDCM #60 tab 05/27/20 Dronabinol [Marinol] 2.5 mg GT BIDAC 30 Days #60 cap 05/27/20 Lorazepam Intensol [Ativan Intensol] 1 mg PO Q4H PRN PRN 5 Days #8 oz 05/27/20 morphine solution (IR) [Roxanol (IR oral solution)] 5 mg PO Q4H PRN PRN 5 Days #8 oz 05/27/20 proMETHazine tablet [Phenergan tablet] 25 mg PO Q4H PRN PRN #60 tab 05/27/20 Following Prescriptions Were Given to Patient: Lorazepam Intensol [Ativan Intensol] 1 mg PO Q4H PRN PRN 5 Days #8 oz PRN Reason: Dyspnea, anxiety Transmission Status: Received by [facility] Dexamethasone [Decadron] 4 mg PO BIDCM #60 tab Transmission Status: Received by [facility] Dronabinol [Marinol] 2.5 mg GT BIDAC 30 Days #60 cap Transmission Status: Received by [facility] proMETHazine tablet [Phenergan tablet] 25 mg PO Q4H PRN PRN #60 tab PRN Reason: NAUSEA/VOMITING Transmission Status: Received by [facility] morphine solution (IR) [Roxanol (IR oral solution)] 5 mg PO Q4H PRN PRN 5 Days #8 oz PRN Reason: Pain, dyspnea Transmission Status: Received by [facility] Benzonatate [Tessalon Perle] 100 mg PO TID PRN PRN #90 cap PRN Reason: Non-Productive Cough Transmission Status: Received by [facility] Primary Care Physician: West Bae MD [Primary Care Provider] - Please follow up with your Primary Care Physician in: If transitioning to hospice may transfer all care to hospice. Please Follow Up With: [facility] When: Case management is setting up home hospice with evaluation Friday. Patient Instructions: What Is Hospice?, Starting Hospice, Hospice: The Importance of Managing Pain, Hospice: Understanding and Caring for Dyspnea, Hospice: Understanding and Caring for Delirium, Hospice: As Nears Disposition: Home with Hospice Minutes spent on discharge:: 35 Patient Condition:: Fair Medical Necessity - Tobacco Use Smoking Status: Current every day smoker Tobacco Use: Cigarettes Meaningful Use Info Meaningful Use Diagnoses (Choose all that apply): None applicable Inpatient E&M: [id number] [facility]
--- NOTE | 2020-05-27 10:40 | NURSING ---
aware per mario case mgmt, she is contacting hospice regarding discharge
[2020-05-27 11:31] VITALS: BP 123/87; PULSE 92; RESP 18; TEMP 36.9; O2SAT 94
== END 2020-05-27 11:56 | disposition hospice, home (50) | DRG 180 ==
LOC: ED 16:12 → MS3 16:59
PROVIDERS: Emergency Provider Emergency Medicine; PCP Family Medicine; Visit Provider Family Medicine
DX: C34.32 Malignant neoplasm of lower lobe, left bronchus or lung (principal); I26.99 Other pulmonary embolism without acute cor pulmonale; R04.2 Hemoptysis; C79.31 Secondary malignant neoplasm of brain; C78.7 Secondary malignant neoplasm of liver and intrahepatic bile duct; C78.89 Secondary malignant neoplasm of other digestive organs; C79.70 Secondary malignant neoplasm of unspecified adrenal gland; R55 Syncope and collapse; J44.9 Chronic obstructive pulmonary disease, unspecified; E03.9 Hypothyroidism, unspecified; F17.210 Nicotine dependence, cigarettes, uncomplicated; Z66 Do not resuscitate; Z51.5 Encounter for palliative care; Z79.890 Hormone replacement therapy; Z79.899 Other long term (current) drug therapy
CPT/HCPCS: 36415; 71275; 74177; 80053; 83690; 85025; 85610; 85730; 99285; J7030; Q9967; A4216; J2405

== ENCOUNTER → 2020-07-11 | Outpatient (CLI) | payer OTHER, SELFPAY ==
[2020-05-26 17:20] VITALS: BMI 25.7
[2020-07-11 13:36] LABS: ALB/GLOB Ratio 0.6 RATIO (0.9-2.4); AST(SGOT) 45 U/L (15-37); Alanine Aminotransfer ALT/SGPT 42 U/L (16-61); Albumin, Serum 2.8 g/dL (3.2-5.0); Alkaline Phosphatase 100 U/L (45-117); Anion Gap 7 (5-15); BUN 16 mg/dL (7-18); BUN/Creat Ratio 15.8 RATIO (10-20); Calcium,Total 9.3 mg/dL (8.5-10.1); Chloride 107 mmol/L (98-107); Creatinine, Serum 1.01 mg/dL (0.70-1.30); EST Glomerular Filtration Rate 80 mL/min (>60); Est Glom Filt Rate - Afr Amer 97 mL/min (>60); Globulin 4.4 g/dL (2.2-4.2); Glucose 102 mg/dL (74-106); Potassium 4.8 mmol/L (3.5-5.1); Protein, Total 7.2 g/dL (6.4-8.2); Sodium Level 141 mmol/L (136-145)
== END | disposition home or self-care (01) ==
PROVIDERS: PCP Family Medicine; Visit Provider Nurse Practitioner Acute Care
DX: C34.90 Malignant neoplasm of unspecified part of unspecified bronchus or lung (principal)
CPT/HCPCS: 80053